=== PATIENT | female | born 1945 | race Caucasian/White ===

== ENCOUNTER → 2016-10-26 | Outpatient (REF) | payer MEDICARE, BC ==
[~2016-10-26] MED LIST: AMLO25TA PO; ASPI325T PO; ATEN50TA2 PO; BAYE325T12 PO; BENA25CA2 PO; CALC600T10 PO; CEFD250SUS PO; FLAG250T PO; HEPA100PFS IV; INVA1INJ IV; KRIL300C PO; MAGN500T2 PO; META28.35 PO; MILKSUS PO; OXYC5CAP28 PO; PROBCAP4 PO; PROT1TAB2 PO; RAMI10CA PO; RAMI5CAP PO; SALI0.9I2 IV; TUMS500C PO; TYLE325T5 PO; VIST50CA PO; VITA100041 PO; VITA500T53 PO; VOLT1GEL24 TD; ZOFR20TA PO; ZOLP-189 PO; [UNRECOGNIZED DRUG - CODE] TOP; multivitamin OR
[2016-10-26 16:22] LABS: BLOOD UREA NITROGEN 19 MG/DL (7-18); CREATININE FOR GFR 0.76 MG/DL (0.55-1.02); GLOMERULAR FILTRATION RATE > 60.0 (>39)
== END ==
LOC: M LABDRAW1 15:39
PROVIDERS: ATTEND Surgery
DX: R10.84 Generalized abdominal pain (principal)

== ENCOUNTER → 2017-07-13 | Outpatient (REF) | payer MEDICARE, BC ==
[~2017-07-13] MED LIST changes: -CALC600T10 PO; +CALC600T31 PO; +VITA-182 PO; -VITA100041 PO; +VOLT1GEL15 TD; -VOLT1GEL24 TD
[2017-07-13 14:21] LABS: VITAMIN B12 LEVEL 805 PG/ML (247-911)
[2017-07-13 14:29] LABS: BASO # 0.1 10^3/uL (0.0-0.2); BASO % 0.7 % (0.0-1.0); EOS # 0.2 10^3/uL (0.0-0.50); EOS % 1.9 % (0.0-3.0); IMMATURE GRANULOCYTE % 0.4 % (0-0); LYMPH # 2.5 10^3/uL (1.5-4.5); LYMPH % 22.5 % (24.0-44.0); MEAN CORPUSCULAR HEMOGLOBIN 32.4 pg (27.0-33.0); MEAN CORPUSCULAR HGB CONC 32.5 g/dl (32.0-36.5); MEAN CORPUSCULAR VOLUME 99.8 fl (80.0-96.0); MONO # 0.9 10^3/uL (0.0-0.8); NEUTROPHILS # 7.5 10^3/uL (1.8-7.7); NEUTROPHILS % 66.5 % (36.0-66.0); PLATELET COUNT, AUTOMATED 294 10^3/uL (150-450); RED CELL DISTRIBUTION WIDTH 12.3 % (11.5-14.5); WHITE BLOOD COUNT 11.2 10^3/uL (4.0-10.0)
[2017-07-13 14:50] LABS: ALBUMIN 3.5 GM/DL (3.2-5.2); ALBUMIN/GLOBULIN RATIO 1.13 (1.00-1.93); ALKALINE PHOSPHATASE 74 U/L (45-117); ALT/SGPT 16 U/L (12-78); ANION GAP 6 MEQ/L (8-16); AST/SGOT 9 U/L (7-37); BILIRUBIN,TOTAL 0.3 MG/DL (0.2-1.0); BLOOD UREA NITROGEN 17 MG/DL (7-18); CALCIUM LEVEL 9.1 MG/DL (8.8-10.2); CARBON DIOXIDE LEVEL 30 MEQ/L (21-32); CHLORIDE LEVEL 104 MEQ/L (98-107); CREATININE FOR GFR 0.69 MG/DL (0.55-1.02); FERRITIN 41 NG/ML (8-252); GLOMERULAR FILTRATION RATE > 60.0 (>39); GLUCOSE, FASTING 77 MG/DL (83-110); PERCENT SATURATION 35.3 % (13.2-45.0); POTASSIUM SERUM 4.6 MEQ/L (3.5-5.1); SODIUM LEVEL 140 MEQ/L (136-145); TOTAL IRON BINDING CAPACITY 300 UG/DL (250-450); TOTAL PROTEIN 6.6 GM/DL (6.4-8.2)
== END ==
LOC: M SFHCPLAZ 09:54 → M LABDRAW1 09:54
PROVIDERS: ATTEND Family Medicine
DX: E53.8 Deficiency of other specified B group vitamins (principal); E55.9 Vitamin D deficiency, unspecified; R73.01 Impaired fasting glucose; Z86.718 Personal history of other venous thrombosis and embolism; M47.814 Spondylosis without myelopathy or radiculopathy, thoracic region; J44.9 Chronic obstructive pulmonary disease, unspecified; I10 Essential (primary) hypertension; M79.7 Fibromyalgia; G47.00 Insomnia, unspecified; E78.5 Hyperlipidemia, unspecified; F17.200 Nicotine dependence, unspecified, uncomplicated; D72.829 Elevated white blood cell count, unspecified; K21.9 Gastro-esophageal reflux disease without esophagitis; D12.6 Benign neoplasm of colon, unspecified; Z12.2 Encounter for screening for malignant neoplasm of respiratory organs
CPT/HCPCS: 80053; 82306; 82607; 82728; 83036; 83550; 83970; 85025; G0463

== ENCOUNTER → 2017-10-24 | Outpatient (CLI) | payer MEDICARE, BC ==
[2017-10-24 09:25] LABS: HEMOGLOBIN 12.9 g/dl (12.0-16.0); MEAN CORPUSCULAR HEMOGLOBIN 32.7 pg (27.0-33.0); MEAN CORPUSCULAR HGB CONC 33.1 g/dl (32.0-36.5); MEAN CORPUSCULAR VOLUME 98.7 fl (80.0-96.0); PLATELET COUNT, AUTOMATED 278 10^3/uL (150-450); RED BLOOD COUNT 3.95 10^6/uL (4.00-5.40); RED CELL DISTRIBUTION WIDTH 12.8 % (11.5-14.5); WHITE BLOOD COUNT 9.8 10^3/uL (4.0-10.0)
[2017-10-24 10:05] LABS: ALBUMIN 3.4 GM/DL (3.2-5.2); ALBUMIN/GLOBULIN RATIO 1.06 (1.00-1.93); ALKALINE PHOSPHATASE 82 U/L (45-117); ALT/SGPT 16 U/L (12-78); ANION GAP 4 MEQ/L (8-16); AST/SGOT 11 U/L (7-37); BILIRUBIN,TOTAL 0.2 MG/DL (0.2-1.0); BLOOD UREA NITROGEN 24 MG/DL (7-18); CALCIUM LEVEL 8.7 MG/DL (8.8-10.2); CARBON DIOXIDE LEVEL 32 MEQ/L (21-32); CHLORIDE LEVEL 108 MEQ/L (98-107); CHOLESTEROL LEVEL 196 MG/DL (<200); CREATININE FOR GFR 0.72 MG/DL (0.55-1.30); GLOMERULAR FILTRATION RATE > 60.0 (>39); GLUCOSE, FASTING 99 MG/DL (70-100); HDL CHOLESTEROL 56 MG/DL (>40); NON-HDL-C 140 MG/DL; POTASSIUM SERUM 4.4 MEQ/L (3.5-5.1); SODIUM LEVEL 144 MEQ/L (136-145); TOTAL PROTEIN 6.6 GM/DL (6.4-8.2); TRIGLYCERIDES LEVEL 65 MG/DL (<150)
[2017-10-24 11:27] LABS: TOTAL 25(OH) VITAMIN D 52.5 NG/ML (30.0-100.0)
== END ==
LOC: M LAB 08:44
DX: R53.83 Other fatigue (principal); I10 Essential (primary) hypertension; J44.9 Chronic obstructive pulmonary disease, unspecified
CPT/HCPCS: 71046

== ENCOUNTER → 2018-03-04 | Outpatient (CLI) | payer MEDICARE, BC ==
[2018-03-04 17:22] LABS: HEMATOCRIT 39.4 % (36.0-47.0); HEMOGLOBIN 13.1 g/dl (12.0-15.5); MEAN CORPUSCULAR HGB CONC 33.2 g/dl (32.0-36.5); MEAN CORPUSCULAR VOLUME 99.2 fl (80.0-96.0); PLATELET COUNT, AUTOMATED 314 10^3/uL (150-450); RED BLOOD COUNT 3.97 10^6/uL (4.00-5.40); RED CELL DISTRIBUTION WIDTH 13.3 % (11.5-14.5); WHITE BLOOD COUNT 14.2 10^3/uL (4.0-10.0)
[2018-03-04 17:39] LABS: ESTIMATED AVERAGE GLUCOSE 117 MG/DL (60-110); HEMOGLOBIN A1c 5.7 %
[2018-03-04 18:36] LABS: TOTAL 25(OH) VITAMIN D 47.4 NG/ML (30.0-100.0)
[2018-03-04 18:48] LABS: ALBUMIN 3.5 GM/DL (3.2-5.2); ALBUMIN/GLOBULIN RATIO 0.97 (1.00-1.93); ALKALINE PHOSPHATASE 85 U/L (45-117); ALT/SGPT 18 U/L (12-78); ANION GAP 8 MEQ/L (8-16); AST/SGOT 13 U/L (7-37); BILIRUBIN,TOTAL 0.3 MG/DL (0.2-1.0); BLOOD UREA NITROGEN 30 MG/DL (7-18); CALCIUM LEVEL 9.1 MG/DL (8.8-10.2); CARBON DIOXIDE LEVEL 29 MEQ/L (21-32); CHLORIDE LEVEL 106 MEQ/L (98-107); CREATININE FOR GFR 1.01 MG/DL (0.55-1.30); GLOMERULAR FILTRATION RATE 56.9 (>39); GLUCOSE, FASTING 93 MG/DL (70-100); IRON (FE) 142 UG/DL (50-170); PERCENT SATURATION 35.9 % (13.2-45.0); POTASSIUM SERUM 4.1 MEQ/L (3.5-5.1); SODIUM LEVEL 143 MEQ/L (136-145); THYROID STIMULATING HORMONE 0.931 uIU/ML (0.358-3.740); TOTAL IRON BINDING CAPACITY 396 UG/DL (250-450); TOTAL PROTEIN 7.1 GM/DL (6.4-8.2)
== END ==
LOC: M LAB 16:22
DX: D64.9 Anemia, unspecified (principal); R53.83 Other fatigue; E03.9 Hypothyroidism, unspecified; Z79.899 Other long term (current) drug therapy
CPT/HCPCS: 83550

== ENCOUNTER → 2018-07-11 | Outpatient (REF) | payer MEDICARE, BC ==
[2018-07-11 17:06] LABS: HEMATOCRIT 39.1 % (36.0-47.0); HEMOGLOBIN 12.7 g/dl (12.0-15.5); MEAN CORPUSCULAR HEMOGLOBIN 33.1 pg (27.0-33.0); MEAN CORPUSCULAR HGB CONC 32.5 g/dl (32.0-36.5); MEAN CORPUSCULAR VOLUME 101.8 fl (80.0-96.0); PLATELET COUNT, AUTOMATED 291 10^3/uL (150-450); RED BLOOD COUNT 3.84 10^6/uL (4.00-5.40); RED CELL DISTRIBUTION WIDTH 13.4 % (11.5-14.5); WHITE BLOOD COUNT 11.5 10^3/uL (4.0-10.0)
[2018-07-11 17:28] LABS: ALBUMIN 3.5 GM/DL (3.2-5.2); ALBUMIN/GLOBULIN RATIO 1.06 (1.00-1.93); ALKALINE PHOSPHATASE 81 U/L (45-117); ALT/SGPT 15 U/L (12-78); AMYLASE 36 U/L (25-115); ANION GAP 5 MEQ/L (8-16); AST/SGOT 9 U/L (7-37); BILIRUBIN,TOTAL 0.3 MG/DL (0.2-1.0); BLOOD UREA NITROGEN 21 MG/DL (7-18); CALCIUM LEVEL 9.3 MG/DL (8.8-10.2); CARBON DIOXIDE LEVEL 32 MEQ/L (21-32); CHLORIDE LEVEL 103 MEQ/L (98-107); CREATININE FOR GFR 0.98 MG/DL (0.55-1.30); GLOMERULAR FILTRATION RATE 58.9 (>39); GLUCOSE, FASTING 166 MG/DL (70-100); POTASSIUM SERUM 4.2 MEQ/L (3.5-5.1); SODIUM LEVEL 140 MEQ/L (136-145); THYROID STIMULATING HORMONE 0.814 uIU/ML (0.358-3.740); TOTAL PROTEIN 6.8 GM/DL (6.4-8.2)
== END ==
LOC: M LABDRAW1 16:41
DX: R10.9 Unspecified abdominal pain (principal); D64.9 Anemia, unspecified
CPT/HCPCS: 82150

== ENCOUNTER → 2018-07-12 | Outpatient (REF) | payer MEDICARE, BC ==
[2018-07-12 12:52] LABS: APPEARANCE, URINE CLEAR (CLEAR); BACTERIA, URINE AUTO 1+ (NEGATIVE); BILIRUBIN, URINE AUTO NEGATIVE (NEGATIVE); BLOOD, URINE BLOOD NEGATIVE (NEGATIVE); COLOR, URINE YELLOW (YELLOW); GLUCOSE, URINE (UA) AUTO NEGATIVE (NEGATIVE); KETONE, URINE AUTO NEGATIVE (NEGATIVE); LEUKOCYTE ESTERASE, URINE AUTO NEGATIVE (NEGATIVE); MUCUS, URINE SMALL (NEGATIVE); NITRITE, URINE AUTO NEGATIVE (NEGATIVE); PROTEIN, URINE AUTO NEGATIVE (NEGATIVE); RBC, URINE AUTO 0 /HPF (0-3); SQUAMOUS EPITHELIAL CELL UR AU 1 /HPF (0-6); UROBILINOGEN, URINE AUTO 0.2 mg/dL (0.0-2.0); WBC, URINE AUTO 1 /HPF (0-3)
== END ==
LOC: M LAB REF 12:15
DX: R10.9 Unspecified abdominal pain (principal); D64.9 Anemia, unspecified; K57.32 Diverticulitis of large intestine without perforation or abscess without bleeding
CPT/HCPCS: 81001

== ENCOUNTER → 2018-12-10 | Outpatient (REF) | payer MEDICARE, BC ==
[~2018-12-10] MED LIST changes: +CEFD250S16 PO; -CEFD250SUS PO; +MILK120011 PO; -MILKSUS PO; -RAMI10CA PO; +RAMI1CAP26 PO; +VITA500T17 PO; -VITA500T53 PO; -ZOFR20TA PO; +ZOFR4TAB16 PO
[2018-12-10 14:15] LABS: APPEARANCE, URINE CLEAR (CLEAR); BACTERIA, URINE AUTO 1+ (NEGATIVE); BILIRUBIN, URINE AUTO NEGATIVE (NEGATIVE); BLOOD, URINE BLOOD NEGATIVE (NEGATIVE); COLOR, URINE STRAW (YELLOW); GLUCOSE, URINE (UA) AUTO NEGATIVE (NEGATIVE); KETONE, URINE AUTO NEGATIVE (NEGATIVE); LEUKOCYTE ESTERASE, URINE AUTO TRACE (NEGATIVE); MUCUS, URINE SMALL (NEGATIVE); NITRITE, URINE AUTO NEGATIVE (NEGATIVE); PROTEIN, URINE AUTO NEGATIVE (NEGATIVE); RBC, URINE AUTO 1 /HPF (0-3); SPECIFIC GRAVITY URINE AUTO 1.005 (1.002-1.035); SQUAMOUS EPITHELIAL CELL UR AU 0 /HPF (0-6); UROBILINOGEN, URINE AUTO 0.2 mg/dL (0.0-2.0); WBC, URINE AUTO 1 /HPF (0-3)
== END ==
LOC: M SFHCPLAZ 12:51
PROVIDERS: ATTEND Nurse Practitioner Family
DX: N39.0 Urinary tract infection, site not specified (principal)
CPT/HCPCS: 51798; 81001; 81002; 82270; 87086; G0463

== ENCOUNTER → 2018-12-30 | Outpatient (REF) | payer MEDICARE, BC | LOC: M SFHCPLAZ 10:03 | PROVIDERS: ATTEND Nurse Practitioner Family | DX: N39.0 Urinary tract infection, site not specified (principal) ==

== ENCOUNTER → 2018-12-31 | Outpatient (REF) | payer MEDICARE, BC ==
[2018-12-31 18:38] LABS: BASO # 0.1 10^3/uL (0.0-0.2); BASO % 0.5 % (0.0-1.0); EOS # 0.2 10^3/uL (0.0-0.50); EOS % 1.8 % (0.0-3.0); HEMATOCRIT 38.5 % (36.0-47.0); HEMOGLOBIN 12.7 g/dl (12.0-15.5); LYMPH # 2.5 10^3/uL (1.5-4.5); LYMPH % 21.6 % (24.0-44.0); MEAN CORPUSCULAR HEMOGLOBIN 33.7 pg (27.0-33.0); MEAN CORPUSCULAR VOLUME 102.1 fl (80.0-96.0); MONO % 8.7 % (0.0-5.0); NEUTROPHILS # 7.7 10^3/uL (1.8-7.7); NEUTROPHILS % 67.2 % (36.0-66.0); PLATELET COUNT, AUTOMATED 277 10^3/uL (150-450); RED BLOOD COUNT 3.77 10^6/uL (4.00-5.40); WHITE BLOOD COUNT 11.5 10^3/uL (4.0-10.0)
[2018-12-31 18:56] LABS: ALBUMIN 3.4 GM/DL (3.2-5.2); BILIRUBIN,TOTAL 0.1 MG/DL (0.2-1.0); CALCIUM LEVEL 8.8 MG/DL (8.8-10.2); CREATININE FOR GFR 1.08 MG/DL (0.55-1.30); GLOMERULAR FILTRATION RATE 52.7 (>39); POTASSIUM SERUM 4.4 MEQ/L (3.5-5.1); TOTAL PROTEIN 6.9 GM/DL (6.4-8.2)
== END ==
LOC: M LABDRAW1 17:15
PROVIDERS: ATTEND Nurse Practitioner Family
DX: N39.0 Urinary tract infection, site not specified (principal)

== ENCOUNTER → 2019-02-07 | Outpatient (REF) | payer MEDICARE, BC ==
[~2019-02-07] MED LIST changes: +BACL1TAB8 PO; +COQ-100C5 PO; +DICY10CA13 PO; +FURO40TA2 PO; +MYRB25TA PO; +POTA8CAP4 PO; +RANI1SYP PO; +[UNRECOGNIZED DRUG - OTHER]
[2019-02-07 14:01] LABS: BASO # 0.1 10^3/uL (0.0-0.2); BASO % 0.8 % (0.0-1.0); EOS # 0.2 10^3/uL (0.0-0.50); EOS % 1.7 % (0.0-3.0); HEMATOCRIT 41.7 % (36.0-47.0); HEMOGLOBIN 13.6 g/dl (12.0-15.5); LYMPH # 2.3 10^3/uL (1.5-4.5); LYMPH % 22.3 % (24.0-44.0); MEAN CORPUSCULAR HEMOGLOBIN 33.9 pg (27.0-33.0); MEAN CORPUSCULAR HGB CONC 32.6 g/dl (32.0-36.5); MONO # 0.9 10^3/uL (0.0-0.8); MONO % 8.5 % (0.0-5.0); NEUTROPHILS # 6.8 10^3/uL (1.8-7.7); NEUTROPHILS % 66.4 % (36.0-66.0); PLATELET COUNT, AUTOMATED 306 10^3/uL (150-450); RED BLOOD COUNT 4.01 10^6/uL (4.00-5.40); WHITE BLOOD COUNT 10.3 10^3/uL (4.0-10.0)
[2019-02-07 14:09] LABS: ALBUMIN 3.3 GM/DL (3.2-5.2); BILIRUBIN,TOTAL 0.2 MG/DL (0.2-1.0); CALCIUM LEVEL 9.6 MG/DL (8.8-10.2); CHOLESTEROL RISK RATIO 4.551 (<5); CREATININE FOR GFR 1.1 MG/DL (0.55-1.30); FREE T4 1.14 NG/DL (0.76-1.46); GLOMERULAR FILTRATION RATE 51.4 (>39); MAGNESIUM LEVEL 2.5 MG/DL (1.8-2.4); POTASSIUM SERUM 4.2 MEQ/L (3.5-5.1); THYROID STIMULATING HORMONE 0.909 uIU/ML (0.358-3.740)
[2019-02-07 14:38] LABS: HEMOGLOBIN A1c 6.2 %
== END ==
LOC: M SFHCPLAZ 11:19
PROVIDERS: ATTEND Nurse Practitioner Family
DX: I10 Essential (primary) hypertension (principal); R73.01 Impaired fasting glucose; E78.5 Hyperlipidemia, unspecified
CPT/HCPCS: 36415; 80053; 80061; 83036; 83735; 84439; 84443; 85025; G0463

== ENCOUNTER 2019-03-03 21:18 | Emergency (ER) | payer MEDICARE, BC ==
[~2019-03-03] VITALS: Ht 167.6 cm; Wt 87.7 kg
[2019-03-03 21:18] VITALS: BP 148/84
[~2019-03-03 21:18] MED LIST changes: -BACL1TAB8 PO; -COQ-100C5 PO; -DICY10CA13 PO; -FURO40TA2 PO; -MYRB25TA PO; -POTA8CAP4 PO; -RANI1SYP PO; -[UNRECOGNIZED DRUG - OTHER]
[2019-03-03] MEDS ORDERED: FURO40TA2 PO (21:38)
[2019-03-03] MEDS ORDERED: POTA8CAP4 PO (21:38)
[2019-03-03] MEDS ORDERED: BACL1TAB8 PO (21:38)
[2019-03-03] MEDS ORDERED: [UNRECOGNIZED DRUG - OTHER] (21:38)
[2019-03-03] MEDS ORDERED: MYRB25TA PO (21:38)
[2019-03-03] MEDS ORDERED: COQ-100C5 PO (21:38)
[2019-03-03] MEDS ORDERED: RANI1SYP PO (21:38)
[2019-03-03] MEDS ORDERED: DICY10CA13 PO (21:38)
== END 2019-03-03 22:41 | disposition left against medical advice (07) ==
LOC: M ED 21:18
DX: Z53.29 Procedure and treatment not carried out because of patient's decision for other reasons (principal)

== ENCOUNTER → 2019-03-20 | Outpatient (CLI) | payer MEDICARE, BC ==
[~2019-03-20] MED LIST changes: +BACL1TAB8 PO; +COQ-100C5 PO; +DICY10CA13 PO; +FURO40TA2 PO; +GASTROGRAFIN SOLUTION 30ML (Q9963) As Ordered ONE; +MYRB25TA PO; +POTA8CAP10 PO; +RANI1SYP PO; +[UNRECOGNIZED DRUG - OTHER]
--- NOTE | 2019-03-20 13:33 | REP ---
CT of the abdomen pelvis without IV or bowel contrast: Comparison is 07/16/2018. The visualized lung walters are unremarkable. There is an hepatic cyst within the interlobar fissure measuring 1.5 cm in diameter, unchanged. The unenhanced hepatic parenchyma is otherwise unremarkable. There are calculi in the gallbladder fundus, unchanged. There is no CT evidence of acute cholecystitis or biliary duct dilatation. This is unchanged. The pancreas and spleen are normal size and unchanged. The adrenals are thickened bilaterally, unchanged, likely adrenal hyperplasia. There are left renal cysts, unchanged. Right kidney is unremarkable and unchanged. There is no abdominal aortic aneurysm. There is no periaortic adenopathy or mass. There is no bowel distension. There is wall thickening of the ascending colon compatible with colitis in the appropriate clinical setting. This has a change from the prior study. There are diverticula in the descending colon and sigmoid colon without CT evidence of diverticulitis. This is unchanged. Pelvis: The appendix is unremarkable. There is a trace of ascites in the dependent pelvis. This is a change from the prior study. There are calcifications in years compatible with degenerating fibroids, unchanged. The adnexa are unremarkable. The bladder is unremarkable. Impression: There are findings compatible with colitis of the ascending colon in the appropriate clinical setting. There is a trace of ascites in the pelvis. There is descending colon and sigmoid colon diverticulosis without diverticulitis, unchanged. There are multiple other stable findings as described, unchanged. Electronically Signed by Greg Hunter MD 03/20/2019 01:25 P
== END ==
LOC: M RAD 08:05
PROVIDERS: ATTEND Physician Assistant
DX: R10.9 Unspecified abdominal pain (principal); K92.1 Melena
CPT/HCPCS: 74176; Q9963

== ENCOUNTER → 2019-03-28 | Outpatient (REF) | payer MEDICARE, BC ==
[~2019-03-28] MED LIST changes: -GASTROGRAFIN SOLUTION 30ML (Q9963) As Ordered ONE
== END ==
LOC: M LAB REF 15:26
PROVIDERS: ATTEND Physician Assistant
DX: R19.7 Diarrhea, unspecified (principal)

== ENCOUNTER → 2019-04-21 | Outpatient (REF) | payer MEDICARE, BC ==
[2019-04-21 19:36] LABS: APPEARANCE, URINE CLOUDY (CLEAR); BACTERIA, URINE AUTO 1+ (NEGATIVE); BILIRUBIN, URINE AUTO NEGATIVE (NEGATIVE); BLOOD, URINE BLOOD NEGATIVE (NEGATIVE); COLOR, URINE YELLOW (YELLOW); GLUCOSE, URINE (UA) AUTO NEGATIVE (NEGATIVE); KETONE, URINE AUTO NEGATIVE (NEGATIVE); LEUKOCYTE ESTERASE, URINE AUTO NEGATIVE (NEGATIVE); MUCUS, URINE SMALL (NEGATIVE); NITRITE, URINE AUTO NEGATIVE (NEGATIVE); PROTEIN, URINE AUTO NEGATIVE (NEGATIVE); RBC, URINE AUTO 2 /HPF (0-3); SPECIFIC GRAVITY URINE AUTO 1.013 (1.002-1.035); SQUAMOUS EPITHELIAL CELL UR AU 9 /HPF (0-6); UROBILINOGEN, URINE AUTO 0.2 mg/dL (0.0-2.0); WBC, URINE AUTO 1 /HPF (0-3)
== END ==
LOC: M SFHCPLAZ 19:16
PROVIDERS: ATTEND Nurse Practitioner Family
DX: R31.9 Hematuria, unspecified (principal)

== ENCOUNTER → 2019-04-24 | Outpatient (REF) | payer MEDICARE, BC ==
[2019-04-29 09:48] LABS: CALPROTECTIN STOOL 250 ug/g (0-120); FATS NEUTRAL Normal (.); FATS TOTAL Normal (.)
== END ==
LOC: M LAB REF 15:49
PROVIDERS: ATTEND Internal Medicine Gastroenterology
DX: R10.12 Left upper quadrant pain (principal); R19.7 Diarrhea, unspecified

== ENCOUNTER → 2019-04-25 | Outpatient (REF) | payer MEDICARE, BC ==
[2019-04-25 16:46] LABS: HEMATOCRIT 39.9 % (36.0-47.0); HEMOGLOBIN 13.1 g/dl (12.0-15.5); MEAN CORPUSCULAR HEMOGLOBIN 32.9 pg (27.0-33.0); MEAN CORPUSCULAR HGB CONC 32.8 g/dl (32.0-36.5); MEAN CORPUSCULAR VOLUME 100.3 fl (80.0-96.0); PLATELET COUNT, AUTOMATED 327 10^3/uL (150-450); RED BLOOD COUNT 3.98 10^6/uL (4.00-5.40); WHITE BLOOD COUNT 9.6 10^3/uL (4.0-10.0)
[2019-04-25 16:52] LABS: ALBUMIN 3.4 GM/DL (3.2-5.2); BILIRUBIN,TOTAL 0.4 MG/DL (0.2-1.0); CALCIUM LEVEL 9.5 MG/DL (8.8-10.2); CREATININE FOR GFR 1.3 MG/DL (0.55-1.30); GLOMERULAR FILTRATION RATE 42.4 (>39); POTASSIUM SERUM 3.5 MEQ/L (3.5-5.1); TOTAL PROTEIN 7.1 GM/DL (6.4-8.2)
== END ==
LOC: M LABDRAWP 12:52
PROVIDERS: ATTEND Physician Assistant
DX: D50.9 Iron deficiency anemia, unspecified (principal); R10.12 Left upper quadrant pain

== ENCOUNTER → 2019-05-22 | Outpatient (REF) | payer MEDICARE, BC ==
[2019-05-22 12:04] LABS: BASO # 0.1 10^3/uL (0.0-0.2); BASO % 0.5 % (0.0-1.0); EOS # 0.2 10^3/uL (0.0-0.5); EOS % 1.5 % (0.0-3.0); HEMATOCRIT 39.1 % (36.0-47.0); HEMOGLOBIN 12.7 g/dl (12.0-15.5); LYMPH % 25.2 % (24.0-44.0); MEAN CORPUSCULAR HEMOGLOBIN 33.2 pg (27.0-33.0); MEAN CORPUSCULAR HGB CONC 32.5 g/dl (32.0-36.5); MEAN CORPUSCULAR VOLUME 102.4 fl (80.0-96.0); MONO # 0.9 10^3/uL (0.0-0.8); MONO % 7.6 % (0.0-5.0); NEUTROPHILS # 7.6 10^3/uL (1.5-8.5); NEUTROPHILS % 64.6 % (36.0-66.0); PLATELET COUNT, AUTOMATED 290 10^3/uL (150-450); RED BLOOD COUNT 3.82 10^6/uL (4.00-5.40); WHITE BLOOD COUNT 11.7 10^3/uL (4.0-10.0)
[2019-05-22 12:40] LABS: ALBUMIN 3.3 GM/DL (3.2-5.2); BILIRUBIN,TOTAL 0.2 MG/DL (0.2-1.0); CALCIUM LEVEL 8.8 MG/DL (8.8-10.2); CHOLESTEROL RISK RATIO 3.174 (<5); CREATININE FOR GFR 0.99 MG/DL (0.55-1.30); FREE T4 1.17 NG/DL (0.76-1.46); GLOMERULAR FILTRATION RATE 58.1 (>39); POTASSIUM SERUM 3.9 MEQ/L (3.5-5.1); THYROID STIMULATING HORMONE 1.39 uIU/ML (0.358-3.740); TOTAL PROTEIN 6.3 GM/DL (6.4-8.2)
[2019-05-22 12:41] LABS: TOTAL 25(OH) VITAMIN D 56.9 NG/ML (30.0-100.0)
[2019-05-22 15:31] LABS: HEMOGLOBIN A1c 5.7 %
== END ==
LOC: M SFHCPLAZ 09:30
PROVIDERS: ATTEND Nurse Practitioner Family
DX: R53.83 Other fatigue (principal); I10 Essential (primary) hypertension; R73.01 Impaired fasting glucose; E78.5 Hyperlipidemia, unspecified; E55.9 Vitamin D deficiency, unspecified; E53.8 Deficiency of other specified B group vitamins

== ENCOUNTER → 2019-09-19 | Outpatient (REF) | payer MEDICARE, BC ==
[2019-09-19 17:34] LABS: BASO # 0.1 10^3/uL (0.0-0.2); BASO % 0.4 % (0.0-1.0); EOS # 0.2 10^3/uL (0.0-0.5); EOS % 1.3 % (0.0-3.0); HEMOGLOBIN 13.3 g/dl (12.0-15.5); LYMPH # 2.8 10^3/uL (1.5-5.0); LYMPH % 24.4 % (24.0-44.0); MEAN CORPUSCULAR HEMOGLOBIN 32.7 pg (27.0-33.0); MEAN CORPUSCULAR HGB CONC 31.7 g/dl (32.0-36.5); MEAN CORPUSCULAR VOLUME 103.2 fl (80.0-96.0); MONO # 0.8 10^3/uL (0.0-0.8); MONO % 6.6 % (0.0-5.0); NEUTROPHILS # 7.8 10^3/uL (1.5-8.5); PLATELET COUNT, AUTOMATED 282 10^3/uL (150-450); RED BLOOD COUNT 4.07 10^6/uL (4.00-5.40); WHITE BLOOD COUNT 11.6 10^3/uL (4.0-10.0)
[2019-09-19 17:50] LABS: HEMOGLOBIN A1c 6.4 %
[2019-09-19 18:10] LABS: ALBUMIN 3.5 GM/DL (3.2-5.2); BILIRUBIN,TOTAL 0.4 MG/DL (0.2-1.0); CALCIUM LEVEL 9.4 MG/DL (8.8-10.2); CREATININE FOR GFR 1.05 MG/DL (0.55-1.30); FREE T4 1.07 NG/DL (0.76-1.46); GLOMERULAR FILTRATION RATE 54.2 (>39); POTASSIUM SERUM 4.6 MEQ/L (3.5-5.1); THYROID STIMULATING HORMONE 0.974 uIU/ML (0.358-3.740); TOTAL PROTEIN 6.8 GM/DL (6.4-8.2)
== END ==
LOC: M LABDRAW1 15:40
PROVIDERS: ATTEND Family Medicine
DX: L65.9 Nonscarring hair loss, unspecified (principal); R73.01 Impaired fasting glucose
CPT/HCPCS: 36415; 80053; 82607; 83036; 83880; 84439; 84443; 84591; 85025; 85046; G0463

== ENCOUNTER → 2019-09-29 | Outpatient (CLI) | payer MEDICARE, BC ==
--- NOTE | 2019-09-29 09:33 | REP ---
Bilateral lower extremity arterial Doppler ultrasound: Right lower extremity: The the CURTIS could not be performed, the patient could not tolerate blood pressure cuff compression. Peak Systolic Phasicity Velocity FINAL FINISHER FORGING DIES the 178 biphasic Profunda 143 monophasic SFA prox 145 biphasic SFA mid 131 biphasic SFA dist 90 biphasic Pop 58 biphasic TEO prox 49 bi-monophasic Tib/P tr 80 biphasic PACKING MACHINE FEEDER pr 54 biphasic PACKING MACHINE FEEDER dst 89 biphasic TEO dst 74 biphasic Left lower extremity: The CURTIS could not be performed, the patient could not tolerate blood pressure cuff compression. Peak Systolic Phasicity Velocity FINAL FINISHER FORGING DIES 151 biphasic Profunda 132 monophasic SFA prox 142 biphasic SFA mid 138 biphasic SFA dist 106 biphasic Pop 65 biphasic TEO prox 50 monophasic Tib/P tr 87 biphasic PACKING MACHINE FEEDER pr 82 biphasic PACKING MACHINE FEEDER dst 67 biphasic TEO dst 57 biphasic Impression: There is no significant stenosis on the right on the left. There is mild atheromatous plaque bilaterally from the CFAs into the bifurcations. Electronically Signed by Greg Hunter MD 09/29/2019 09:24 A
== END ==
LOC: M RAD 07:41
PROVIDERS: ATTEND Family Medicine
DX: I73.9 Peripheral vascular disease, unspecified (principal)

== ENCOUNTER → 2019-10-06 | Outpatient (CLI) | payer MEDICARE, BC ==
--- NOTE | 2019-10-07 10:47 | REPVR ---
PROCEDURE INFORMATION: Exam: MR Thoracic Spine Without Contrast Exam date and time: 10/06/2019 1:52 PM Age: 74 years old Clinical indication: Pain in thoracic spine; With radiculopathy; Bilateral; Additional info: Osteoarthritis of spine w/radiculopathy, thoracic region TECHNIQUE: Imaging protocol: Multiplanar magnetic resonance images of the thoracic spine without contrast. COMPARISON: No relevant prior studies available. FINDINGS: Vertebrae: The thoracic vertebral bodies are normal height and alignment.No acute fracture or dislocation is seen. Marrow: There is mild diffuse prominence of the hematopoietic bone marrow, disproportionate for this patient's age. This can represent the effects of chronic anemia, chronic renal and liver disease, smoking, pharmacologic marrow stimulating factors, and infiltrating processes such as multiple myeloma, metastasis, lymphoma or leukemia. Clinical correlation is recommended. Epidural space: There is no evidence of epidural masses or hemorrhage. Spinal cord: The thoracic spinal cord is normal in thickness and signal intensity.There is no cord compression or intramedullary signal abnormality. Discs/Spinal canal/Neural foramina: Mild degenerative spondylotic changes are seen in the form of mild disc space narrowing, small marginal osteophytes and mild facet arthropathy at T5-6 through T9-10 levels. There is a mild diffuse posterior bulge at these levels. There is no evidence of spinal canal narrowing.There is no evidence of foraminal stenosis. Soft tissues: The prevertebral soft tissues appear normal. IMPRESSION: 1. The thoracic vertebral bodies are normal height and alignment.No acute fracture or dislocation is seen. 2. There is mild diffuse prominence of the hematopoietic bone marrow, disproportionate for this patient's age. This can represent the effects of chronic anemia, chronic renal and liver disease, smoking, pharmacologic marrow stimulating factors, and infiltrating processes such as multiple myeloma, metastasis, lymphoma or leukemia. Clinical correlation is recommended. 3. The thoracic spinal cord is normal in thickness and signal intensity.There is no cord compression or intramedullary signal abnormality. 4. Mild degenerative spondylotic changes are seen in the form of mild disc space narrowing, small marginal osteophytes and mild facet arthropathy at T5-6 through T9-10 levels. There is a mild diffuse posterior bulge at these levels. There is no evidence of spinal canal narrowing.There is no evidence of foraminal stenosis. Electronically signed by: Louie Moore On 10/07/2019 10:46:42 AM
== END ==
LOC: M RAD 11:57
PROVIDERS: ATTEND Family Medicine
DX: M47.24 Other spondylosis with radiculopathy, thoracic region (principal)

== ENCOUNTER → 2020-02-17 | Outpatient (CLI) | payer MEDICARE, BC ==
--- NOTE | 2020-02-17 12:23 | REPPI ---
LEFT KNEE SERIES: Five views. HISTORY: Primary osteoarthritis of both knees. FINDINGS: Five views of the left knee demonstrate left knee arthroplasty components in good position. No erosive changes seen. Soft tissues are unremarkable. IMPRESSION: Status post left knee arthroplasty. No acute abnormality. Electronically Signed by Hernán Chin MD 02/17/2020 12:32 P
== END ==
LOC: M PLAIMG 11:17
PROVIDERS: ATTEND Family Medicine
DX: M17.0 Bilateral primary osteoarthritis of knee (principal)
CPT/HCPCS: 73564; G0463

== ENCOUNTER 2020-07-24 10:06 | Emergency (ER) | payer MEDICARE, BC ==
[~2020-07-24] VITALS: Ht 167.6 cm; Wt 80.5 kg
[2020-07-24 10:51] LABS: BASO # 0.1 10^3/uL (0.0-0.2); BASO % 0.4 % (0.0-1.0); EOS # 0.1 10^3/uL (0.0-0.5); EOS % 0.4 % (0.0-3.0); HEMATOCRIT 41.7 % (36.0-47.0); HEMOGLOBIN 13.4 g/dl (12.0-15.5); LYMPH # 1.7 10^3/uL (1.5-5.0); LYMPH % 12.2 % (24.0-44.0); MEAN CORPUSCULAR HEMOGLOBIN 33.2 pg (27.0-33.0); MEAN CORPUSCULAR HGB CONC 32.1 g/dl (32.0-36.5); MEAN CORPUSCULAR VOLUME 103.2 fl (80.0-96.0); MONO # 0.6 10^3/uL (0.0-0.8); NEUTROPHILS # 11.3 10^3/uL (1.5-8.5); NEUTROPHILS % 82.6 % (36.0-66.0); PLATELET COUNT, AUTOMATED 276 10^3/uL (150-450); RED BLOOD COUNT 4.04 10^6/uL (4.00-5.40); WHITE BLOOD COUNT 13.7 10^3/uL (4.0-10.0)
--- NOTE | 2020-07-24 10:51 | REP ---
INDICATION: left ro dislocation vs fracture COMPARISON: None. TECHNIQUE: Internal rotation, external rotation, and Y view left shoulder. FINDINGS: Anteroinferior glenohumeral dislocation is appreciated. Humerus appears intact. Subtle injury to the glenoid cannot be excluded. Osseous structures demonstrate underlying age-related osteopenia. The acromioclavicular joint appears intact. IMPRESSION: Anteroinferior glenohumeral joint dislocation. No obvious proximal humeral fracture. <Electronically signed by Abhinav Morales > 07/24/20 1048
--- NOTE | 2020-07-24 10:53 | REP ---
INDICATION: left COMPARISON: None. TECHNIQUE: AP, lateral views of the left humerus. FINDINGS: Age-related osteopenia. Anteroinferior glenohumeral joint dislocation noted. Humerus appears intact and without acute fracture. IMPRESSION: Glenohumeral joint dislocation. No acute fracture or dislocation. <Electronically signed by Abhinav Morales > 07/24/20 1047
[2020-07-24 11:08] LABS: CALCIUM LEVEL 8.7 MG/DL (8.8-10.2); CREATININE FOR GFR 1.04 MG/DL (0.55-1.30); GLOMERULAR FILTRATION RATE 54.7 (>39); POTASSIUM SERUM 4.1 MEQ/L (3.5-5.1)
[2020-07-24] MEDS ORDERED: MORPHINE 4 MG/ML 1ML VIAL/SYRINGE (J2270) As Ordered ONE (11:31)
[2020-07-24] MEDS ORDERED: MORPHINE 2 MG/ML 1ML VIAL (J2270) As Ordered ONE (11:50)
[2020-07-24] MEDS: MORPHINE 2 MG/ML 1ML VIAL (J2270) IV PRN ×2 (11:56→12:38)
[2020-07-24] MEDS ORDERED: propofoL 200 MG/20 ML VIAL As Ordered ONE (11:57)
[2020-07-24] MEDS ORDERED: propofoL 200 MG/20 ML VIAL IV ONE (12:30)
--- NOTE | 2020-07-24 13:13 | REP ---
INDICATION: reduced COMPARISON: 07/24/2020 TECHNIQUE: Portable neutral and Y-views of the left shoulder. FINDINGS: Satisfactory reduction at the glenohumeral joint is appreciated. Acromioclavicular joint is normal. No acute fracture or further dislocation noted. IMPRESSION: Satisfactory reduction at the glenohumeral joint. No obvious acute fracture. <Electronically signed by Abhinav Morales > 07/24/20 [id number]
[2020-07-24 14:29] VITALS: BP 160/71
--- NOTE | 2020-07-24 15:04 | ECGEPIP ---
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
== END 2020-07-24 14:38 | disposition home or self-care (01) ==
LOC: M ED 10:06
DX: S43.005A Unspecified dislocation of left shoulder joint, initial encounter (principal); X50.0XXA Overexertion from strenuous movement or load, initial encounter; Y92.019 Unspecified place in single-family (private) house as the place of occurrence of the external cause; Y93.9 Activity, unspecified; I10 Essential (primary) hypertension; M81.8 Other osteoporosis without current pathological fracture; Z88.0 Allergy status to penicillin; Z88.1 Allergy status to other antibiotic agents; Z88.2 Allergy status to sulfonamides; Z88.6 Allergy status to analgesic agent; Z88.8 Allergy status to other drugs, medicaments and biological substances; Z79.899 Other long term (current) drug therapy
CPT/HCPCS: 23655; 73030; 73060; 80048; 85025; 93005; 96374; 96375; 99284; J2270

== ENCOUNTER 2021-01-27 11:43 | Emergency (ER) | payer MEDICARE, BC ==
[~2021-01-27] VITALS: Ht 167.6 cm; Wt 77.3 kg
[2021-01-27 11:43] VITALS: BP 181/84
--- NOTE | 2021-01-27 12:09 | REP ---
INDICATION: R/O DISLOCATION COMPARISON: None. TECHNIQUE: Internal rotation, external rotation, and Y view. FINDINGS: Generalized age-related changes are appreciated. There is no evidence for acute fracture or dislocation. IMPRESSION: No acute fracture or dislocation. <Electronically signed by Abhinav Morales > 01/27/21 [id number]
[2021-01-27] MEDS ORDERED: HYDR-3715 PO (12:28)
[2021-01-27] MEDS ORDERED: NORCO, ANEXSIA 5/325MG TABLET (HYDROcodone/ACETAMINOPHEN) PO ONE (12:30)
== END 2021-01-27 13:04 | disposition home or self-care (01) ==
LOC: M ED 11:43
DX: S43.001A Unspecified subluxation of right shoulder joint, initial encounter (principal); X50.0XXA Overexertion from strenuous movement or load, initial encounter; Y92.019 Unspecified place in single-family (private) house as the place of occurrence of the external cause; Y93.9 Activity, unspecified; Y99.9 Unspecified external cause status; I10 Essential (primary) hypertension; K21.9 Gastro-esophageal reflux disease without esophagitis; F17.200 Nicotine dependence, unspecified, uncomplicated; Z88.0 Allergy status to penicillin; Z88.2 Allergy status to sulfonamides; Z88.1 Allergy status to other antibiotic agents; Z88.8 Allergy status to other drugs, medicaments and biological substances; Z79.899 Other long term (current) drug therapy

== ENCOUNTER → 2021-04-22 | Outpatient (CLI) | payer MEDICARE, BC ==
[~2021-04-22] MED LIST changes: +HYDR-3715 PO
[2021-04-22 15:20] LABS: BASO # 0.1 10^3/uL (0.0-0.2); BASO % 0.5 % (0.0-1.0); EOS # 0.2 10^3/uL (0.0-0.5); EOS % 1.3 % (0.0-3.0); HEMOGLOBIN 13.6 g/dl (12.0-15.5); LYMPH # 2.3 10^3/uL (1.5-5.0); LYMPH % 19.1 % (24.0-44.0); MEAN CORPUSCULAR HEMOGLOBIN 34.1 pg (27.0-33.0); MEAN CORPUSCULAR HGB CONC 33.2 g/dl (32.0-36.5); MEAN CORPUSCULAR VOLUME 102.8 fl (80.0-96.0); MONO % 8.5 % (2.0-8.0); NEUTROPHILS # 8.5 10^3/uL (1.5-8.5); NEUTROPHILS % 70.1 % (36.0-66.0); PLATELET COUNT, AUTOMATED 264 10^3/uL (150-450); RED BLOOD COUNT 3.99 10^6/uL (4.00-5.40); WHITE BLOOD COUNT 12.1 10^3/uL (4.0-10.0)
[2021-04-22 15:38] LABS: HEMOGLOBIN A1c 5.5 %
[2021-04-22 15:51] LABS: ALBUMIN 3.1 GM/DL (3.2-5.2); ALT/SGPT 16 U/L (12-78); BILIRUBIN,TOTAL 0.3 MG/DL (0.2-1.0); BLOOD UREA NITROGEN 14 MG/DL (7-18); CALCIUM LEVEL 8.8 MG/DL (8.8-10.2); CARBON DIOXIDE LEVEL 32 MEQ/L (21-32); CHLORIDE LEVEL 106 MEQ/L (98-107); CHOLESTEROL LEVEL 159 MG/DL (<200); CHOLESTEROL RISK RATIO 2.789 (<5); CREATININE FOR GFR 0.94 MG/DL (0.55-1.30); FREE T4 1.01 NG/DL (0.76-1.46); GLOMERULAR FILTRATION RATE > 60.0 (>39); GLUCOSE, FASTING 85 MG/DL (70-100); HDL CHOLESTEROL 57 MG/DL (>40); LDL CHOLESTEROL 82 MG/DL (<100); NON-HDL-C 102 MG/DL; POTASSIUM SERUM 4.1 MEQ/L (3.5-5.1); SODIUM LEVEL 140 MEQ/L (136-145); TOTAL PROTEIN 6.5 GM/DL (6.4-8.2); TRIGLYCERIDES LEVEL 98 MG/DL (<150)
== END ==
LOC: M PLALAB 13:15
PROVIDERS: ATTEND Nurse Practitioner Family
DX: R73.01 Impaired fasting glucose (principal); E78.5 Hyperlipidemia, unspecified

== ENCOUNTER → 2021-06-21 | Outpatient (CLI) | payer MEDICARE, BC ==
[2021-06-21 17:58] LABS: BLOOD UREA NITROGEN 17 MG/DL (7-18); CALCIUM LEVEL 9.6 MG/DL (8.8-10.2); CARBON DIOXIDE LEVEL 30 MEQ/L (21-32); CHLORIDE LEVEL 109 MEQ/L (98-107); CREATININE FOR GFR 1.05 MG/DL (0.55-1.30); GLUCOSE, FASTING 91 MG/DL (70-100); POTASSIUM SERUM 5.3 MEQ/L (3.5-5.1); SODIUM LEVEL 141 MEQ/L (136-145); THYROID STIMULATING HORMONE 0.912 uIU/ML (0.358-3.740)
[2021-06-21 18:00] LABS: VITAMIN B12 LEVEL 624 PG/ML (247-911)
== END ==
LOC: M PLALAB 15:41
PROVIDERS: ATTEND Physician Assistant Medical
DX: R41.3 Other amnesia (principal); Z23 Encounter for immunization
CPT/HCPCS: 36415; 80048; 82607; 83655; 84439; 84443; 86780; 90682; G0008; G0463

== ENCOUNTER → 2021-06-24 | Outpatient (CLI) | payer MEDICARE, BC ==
[~2021-06-24] MED LIST changes: +ISOVUE-370 76% 100ML VIAL As Ordered ONE
--- NOTE | 2021-06-24 18:57 | REPVR ---
PROCEDURE INFORMATION: Exam: CT Head Without And With Contrast Exam date and time: 06/24/2021 5:53 PM Age: 76 years old Clinical indication: Altered mental status/memory loss TECHNIQUE: Imaging protocol: Computed tomography of the head without and with intravenous contrast. Radiation optimization: All CT scans at this facility use at least one of these dose optimization techniques: automated exposure control; mA and/or kV adjustment per patient size (includes targeted exams where dose is matched to clinical indication); or iterative reconstruction. Contrast material: ISOVUE 370; Contrast volume: 75 ml; Contrast route: INTRAVENOUS (IV); COMPARISON: NM Bone Scan Whole Body 04/21/2015 8:52 AM FINDINGS: Brain: There is no acute intracranial hemorrhage, cerebral edema, or midline shift. Age-related cerebral and cerebellar volume loss is present. No enhancing lesions were identified after the administration of contrast. Cerebral ventricles: No hydrocephalus. Paranasal sinuses: There is no acute sinusitis. Mastoid air cells: Poor pneumatization of the mastoids is likely due to remote/chronic inflammation. Orbital cavity: Unremarkable as visualized. Bones/joints: Unremarkable. No acute fracture. Soft tissues: Unremarkable. IMPRESSION: No acute intracranial abnormality. Electronically signed by: Volodymyr Mcdonnell On 06/24/2021 18:57:09 PM
== END ==
LOC: M RAD 17:30
PROVIDERS: ATTEND Physician Assistant Medical
DX: R41.3 Other amnesia (principal)
CPT/HCPCS: 70470; Q9967

== ENCOUNTER → 2021-09-06 | Outpatient (REF) | payer MEDICARE, BC ==
[~2021-09-06] MED LIST changes: -ISOVUE-370 76% 100ML VIAL As Ordered ONE
[2021-09-06 17:27] LABS: APPEARANCE, URINE HAZY (CLEAR); BACTERIA, URINE AUTO 1+ (NEGATIVE); BILIRUBIN, URINE AUTO NEGATIVE (NEGATIVE); BLOOD, URINE BLOOD NEGATIVE (NEGATIVE); COLOR, URINE YELLOW (YELLOW); GLUCOSE, URINE (UA) AUTO NEGATIVE (NEGATIVE); KETONE, URINE AUTO NEGATIVE (NEGATIVE); LEUKOCYTE ESTERASE, URINE AUTO 2+ (NEGATIVE); NITRITE, URINE AUTO NEGATIVE (NEGATIVE); PROTEIN, URINE AUTO NEGATIVE (NEGATIVE); RBC, URINE AUTO 2 /HPF (0-3); SPECIFIC GRAVITY URINE AUTO 1.016 (1.002-1.035); SQUAMOUS EPITHELIAL CELL UR AU 3 /HPF (0-6); UROBILINOGEN, URINE AUTO 0.2 mg/dL (0.0-2.0); WBC, URINE AUTO 4 /HPF (0-3)
== END ==
LOC: M LAB REF 16:55
PROVIDERS: ATTEND Nurse Practitioner Family
DX: N39.0 Urinary tract infection, site not specified (principal)

== ENCOUNTER 2022-02-16 19:36 | Inpatient (IN) | payer MEDICARE, BC ==
[~2022-02-16] VITALS: Ht 167.6 cm; Wt 78.0 kg
[2022-02-16] MEDS ORDERED: hydrALAZINE 20MG/ML 1ML VIAL (J0360 PER 20MG) IV STA (20:20)
[2022-02-16 20:51] LABS: BASO % 0.1 % (0.0-1.0); HEMATOCRIT 42.7 % (36.0-47.0); HEMOGLOBIN 14.6 g/dl (12.0-15.5); LYMPH % 4.7 % (24.0-44.0); MEAN CORPUSCULAR HEMOGLOBIN 33.7 pg (27.0-33.0); MEAN CORPUSCULAR HGB CONC 34.2 g/dl (32.0-36.5); MEAN CORPUSCULAR VOLUME 98.6 fl (80.0-96.0); MONO # 1.5 10^3/uL (0.0-0.8); MONO % 7.3 % (2.0-8.0); NEUTROPHILS # 18.1 10^3/uL (1.5-8.5); NEUTROPHILS % 87.2 % (36.0-66.0); PLATELET COUNT, AUTOMATED 284 10^3/uL (150-450); RED BLOOD COUNT 4.33 10^6/uL (4.00-5.40); WHITE BLOOD COUNT 20.7 10^3/uL (4.0-10.0)
[2022-02-16] MEDS: risperiDONE 1 MG TAB PO SCH (21:00)
[2022-02-16] MEDS: ASPIRIN 325 MG TAB PO SCH (21:00)
[2022-02-16 21:15] LABS: CALCIUM LEVEL 9.9 MG/DL (8.8-10.2); CREATININE FOR GFR 1.01 MG/DL (0.55-1.30); FREE T4 1.37 NG/DL (0.76-1.46); GLOMERULAR FILTRATION RATE 56.3 (>39); MAGNESIUM LEVEL 2.8 MG/DL (1.8-2.4); POTASSIUM SERUM 3.5 MEQ/L (3.5-5.1); THYROID STIMULATING HORMONE 0.336 uIU/ML (0.358-3.740)
[2022-02-16 21:23] LABS: CK-MB VALUE MASS 19.8 NG/ML (<3.6); MB/CK RELATIVE INDEX 1.04 (< OR =4)
[2022-02-16] MEDS ORDERED: cefTRIAXone SOD 1 GM in D5W MINI-BAG PLUS 50 ML IV ONE (21:25)
[2022-02-16] MEDS ORDERED: NS 500 ML IV ONE (22:05)
[2022-02-16 22:28] LABS: CK-MB VALUE MASS 20.5 NG/ML (<3.6); MB/CK RELATIVE INDEX 1.11 (< OR =4)
[2022-02-16 22:53] LABS: AMPHETAMINES LEVEL URINE NEGATIVE (NEGATIVE); BARBITURATES URINE NEGATIVE (NEGATIVE); BENZODIAZEPINES URINE NEGATIVE (NEGATIVE); CANNABINOIDS URINE POSITIVE (NEGATIVE); COCAINE METABOLITE URINE NEGATIVE (NEGATIVE); METHADONE URINE NEGATIVE (NEGATIVE); OPIATES URINE NEGATIVE (NEGATIVE); PHENCYCLIDINE URINE NEGATIVE (NEGATIVE)
[2022-02-16] MEDS ORDERED: NS 1,000 ML IV ONE (23:15)
[2022-02-16] MEDS ORDERED: NS 1,000 ML IV SCH (23:15)
[2022-02-16 23:47] LABS: RSV AMPLIFICATION NEGATIVE (NEGATIVE)
[2022-02-17 01:13] LABS: HEMOGLOBIN A1c 5.5 %
[2022-02-17] MEDS ORDERED: GNP99TAB3 PO (02:35)
[2022-02-17] MEDS ORDERED: DIPH25CA32 PO (02:35)
[2022-02-17] MEDS ORDERED: MAGN400T35 PO (02:35)
[2022-02-17] MEDS ORDERED: ZOLP5TAB PO (02:35)
[2022-02-17] MEDS ORDERED: FURO20TA2 PO (02:35)
[2022-02-17] MEDS ORDERED: BACITAB PO (02:35)
[2022-02-17] MEDS ORDERED: VITA100093 PO (02:35)
[2022-02-17] MEDS ORDERED: RISP-8 PO (02:35)
[2022-02-17] MEDS ORDERED: PREP1SUP PR (02:35)
[2022-02-17] MEDS ORDERED: FISH1000 PO (02:35)
[2022-02-17] MEDS ORDERED: HOME MED LIST COMPLETE! XX SCH (02:35)
[2022-02-17] MEDS ORDERED: BACL10TA2 PO (02:35)
[2022-02-17] MEDS ORDERED: DOXYCYCLINE HYCLATE 100 MG in D5W MINI-BAG PLUS 100 ML IV ONE (03:00)
[2022-02-17] MEDS ORDERED: BACLOFEN 10 MG TAB PO PRN (03:00)
[2022-02-17] MEDS ORDERED: POLYVINYL ALCOHOL OPHTH SOLN 15 ML(LIQUITEARS) OU PRN (03:15)
[2022-02-17 06:40] LABS: HEMATOCRIT 35.6 % (36.0-47.0); MEAN CORPUSCULAR HEMOGLOBIN 33.1 pg (27.0-33.0); MEAN CORPUSCULAR HGB CONC 33.1 g/dl (32.0-36.5); PLATELET COUNT, AUTOMATED 208 10^3/uL (150-450); RED BLOOD COUNT 3.56 10^6/uL (4.00-5.40); WHITE BLOOD COUNT 17.4 10^3/uL (4.0-10.0)
[2022-02-17 06:45] LABS: HEMOGLOBIN 11.8 g/dl (12.0-15.5)
[2022-02-17 07:04] LABS: BLOOD UREA NITROGEN 26 MG/DL (7-18); CALCIUM LEVEL 7.9 MG/DL (8.8-10.2); CARBON DIOXIDE LEVEL 28 MEQ/L (21-32); CHLORIDE LEVEL 112 MEQ/L (98-107); CREATININE FOR GFR 0.82 MG/DL (0.55-1.30); GLOMERULAR FILTRATION RATE > 60.0 (>39); GLUCOSE, FASTING 111 MG/DL (70-100); MAGNESIUM LEVEL 2.4 MG/DL (1.8-2.4); POTASSIUM SERUM 2.8 MEQ/L (3.5-5.1); SODIUM LEVEL 145 MEQ/L (136-145)
[2022-02-17] MEDS: **hydrALAZINE HCL** 25 MG TAB PO SCH ×4 (08:12→23:50)
[2022-02-17] MEDS: ramipriL 5 MG CAP PO SCH ×2 (09:00→22:02)
[2022-02-17] MEDS: CYANOCOBALAMIN 500 MCG TAB PO SCH (10:06)
[2022-02-17] MEDS: LACTOBACILLUS ACIDOPHILUS CAP (BACID) PO SCH (10:07)
[2022-02-17] MEDS: PANTOPRAZOLE 40MG TAB (PROTONIX) PO SCH (10:07)
[2022-02-17] MEDS: VITAMIN D 1,000 INTERNATIONAL UNITS TABLET PO SCH (10:07)
[2022-02-17] MEDS: POTASSIUM CHLORIDE 10MEQ SR TABLET PO SCH (10:07)
[2022-02-17] MEDS: ENOXAPARIN 40MG/0.4ML SYRINGE (J1650 PER 10MG) SC SCH (10:08)
[2022-02-17] MEDS: MAGNESIUM OXIDE 400MG TAB (MAG-OX) PO SCH (10:08)
[2022-02-17 12:00] VITALS: BP 152/51
[2022-02-17] MEDS ORDERED: POTASSIUM CHLORIDE 10MEQ SR TABLET PO ONE (12:00)
[2022-02-17 14:00] VITALS: BP 126/48
[2022-02-17] MEDS ORDERED: MOM 30ML SUSPENSION UDC PO ONE (15:35)
[2022-02-17] MEDS: DOXYCYCLINE HYCLATE 100 MG in D5W MINI-BAG PLUS 100 ML IV SCH (15:59)
[2022-02-17 17:00] VITALS: BP_SYST 148; BP_SYST 151; BP_SYST 153; BP_DIAS 49; BP_DIAS 52; BP_DIAS 55
[2022-02-17 20:37] VITALS: BP 167/71
[2022-02-17 20:58] LABS: CREATININE FOR GFR 0.97 MG/DL (0.55-1.30); POTASSIUM SERUM 4.2 MEQ/L (3.5-5.1)
[2022-02-17] MEDS: SENOKOT S TAB PO SCH (21:00)
[2022-02-17] MEDS: ASPIRIN 325 MG TAB PO SCH (21:06)
[2022-02-17] MEDS: amLODIPine 5 MG TAB PO SCH (21:09)
[2022-02-17] MEDS: risperiDONE 1 MG TAB PO SCH (21:10)
[2022-02-17] MEDS ORDERED: traZODone 50 MG TAB PO ONE (22:00)
[2022-02-17] MEDS ORDERED: cefTRIAXone SOD 1 GM in D5W MINI-BAG PLUS 50 ML IV SCH (22:00)
[2022-02-18 01:00] VITALS: BP_SYST 152; BP_SYST 159; BP_DIAS 62; BP_DIAS 72
[2022-02-18] MEDS: DOXYCYCLINE HYCLATE 100 MG in D5W MINI-BAG PLUS 100 ML IV SCH (02:53)
[2022-02-18 06:00] VITALS: BP 132/49
[2022-02-18] MEDS: **hydrALAZINE HCL** 25 MG TAB PO SCH ×3 (06:00→17:44)
[2022-02-18 06:45] LABS: BASO # 0.1 10^3/uL (0.0-0.2); BASO % 0.3 % (0.0-1.0); EOS # 0.1 10^3/uL (0.0-0.5); EOS % 0.6 % (0.0-3.0); HEMATOCRIT 36.9 % (36.0-47.0); HEMOGLOBIN 11.9 g/dl (12.0-15.5); LYMPH # 2.3 10^3/uL (1.5-5.0); LYMPH % 13.4 % (24.0-44.0); MEAN CORPUSCULAR HEMOGLOBIN 32.6 pg (27.0-33.0); MEAN CORPUSCULAR HGB CONC 32.2 g/dl (32.0-36.5); MEAN CORPUSCULAR VOLUME 101.1 fl (80.0-96.0); MONO # 1.5 10^3/uL (0.0-0.8); MONO % 9.1 % (2.0-8.0); NEUTROPHILS # 12.8 10^3/uL (1.5-8.5); PLATELET COUNT, AUTOMATED 234 10^3/uL (150-450); RED BLOOD COUNT 3.65 10^6/uL (4.00-5.40); WHITE BLOOD COUNT 16.9 10^3/uL (4.0-10.0)
[2022-02-18 07:05] LABS: BLOOD UREA NITROGEN 28 MG/DL (7-18); CALCIUM LEVEL 9.4 MG/DL (8.8-10.2); CARBON DIOXIDE LEVEL 26 MEQ/L (21-32); CHLORIDE LEVEL 112 MEQ/L (98-107); CREATININE FOR GFR 0.87 MG/DL (0.55-1.30); GLOMERULAR FILTRATION RATE > 60.0 (>39); GLUCOSE, FASTING 102 MG/DL (70-100); POTASSIUM SERUM 4.4 MEQ/L (3.5-5.1); SODIUM LEVEL 145 MEQ/L (136-145)
[2022-02-18] MEDS: ramipriL 5 MG CAP PO SCH ×2 (10:13→20:32)
[2022-02-18] MEDS: ENOXAPARIN 40MG/0.4ML SYRINGE (J1650 PER 10MG) SC SCH (10:13)
[2022-02-18] MEDS: VITAMIN D 1,000 INTERNATIONAL UNITS TABLET PO SCH (10:14)
[2022-02-18] MEDS: POTASSIUM CHLORIDE 10MEQ SR TABLET PO SCH (10:14)
[2022-02-18] MEDS: LACTOBACILLUS ACIDOPHILUS CAP (BACID) PO SCH (10:14)
[2022-02-18] MEDS: amLODIPine 5 MG TAB PO SCH (10:14)
[2022-02-18] MEDS: PANTOPRAZOLE 40MG TAB (PROTONIX) PO SCH (10:15)
[2022-02-18] MEDS: MAGNESIUM OXIDE 400MG TAB (MAG-OX) PO SCH (10:15)
[2022-02-18] MEDS: CYANOCOBALAMIN 500 MCG TAB PO SCH (10:15)
[2022-02-18 17:45] VITALS: BP 161/72
[2022-02-18] MEDS: ASPIRIN 325 MG TAB PO SCH (20:28)
[2022-02-18] MEDS: risperiDONE 1 MG TAB PO SCH (20:32)
[2022-02-18] MEDS: SENOKOT S TAB PO SCH (20:32)
[2022-02-18 20:37] VITALS: BP 160/68
[2022-02-19] MEDS: RAMELTEON 8 MG TAB (ROZEREM) PO PRN (00:21)
[2022-02-19] MEDS: **hydrALAZINE HCL** 25 MG TAB PO SCH ×4 (00:22→18:18)
[2022-02-19 00:30] VITALS: BP 161/68
[2022-02-19 05:26] VITALS: BP 161/63
[2022-02-19 08:38] VITALS: BP 172/66
[2022-02-19] MEDS: ramipriL 5 MG CAP PO SCH ×2 (08:40→21:08)
[2022-02-19] MEDS: PANTOPRAZOLE 40MG TAB (PROTONIX) PO SCH (08:41)
[2022-02-19] MEDS: MAGNESIUM OXIDE 400MG TAB (MAG-OX) PO SCH (08:41)
[2022-02-19] MEDS: ENOXAPARIN 40MG/0.4ML SYRINGE (J1650 PER 10MG) SC SCH (08:41)
[2022-02-19] MEDS: CYANOCOBALAMIN 500 MCG TAB PO SCH (08:41)
[2022-02-19] MEDS: VITAMIN D 1,000 INTERNATIONAL UNITS TABLET PO SCH (08:41)
[2022-02-19] MEDS: POTASSIUM CHLORIDE 10MEQ SR TABLET PO SCH (08:41)
[2022-02-19] MEDS: LACTOBACILLUS ACIDOPHILUS CAP (BACID) PO SCH (08:41)
[2022-02-19 12:51] VITALS: BP 171/65
[2022-02-19] MEDS: ASPIRIN 325 MG TAB PO SCH (20:59)
[2022-02-19] MEDS: SENOKOT S TAB PO SCH (21:00)
[2022-02-19] MEDS: ACETAMINOPHEN TAB 650MG DOSE (2X325MG) PO PRN (21:08)
[2022-02-19] MEDS: risperiDONE 1 MG TAB PO SCH (21:09)
[2022-02-20] MEDS: **hydrALAZINE HCL** 25 MG TAB PO SCH ×5 (00:29→23:43)
[2022-02-20 06:00] VITALS: BP 153/60
[2022-02-20] MEDS: LACTOBACILLUS ACIDOPHILUS CAP (BACID) PO SCH (10:36)
[2022-02-20] MEDS: POTASSIUM CHLORIDE 10MEQ SR TABLET PO SCH (10:36)
[2022-02-20] MEDS: PANTOPRAZOLE 40MG TAB (PROTONIX) PO SCH (10:36)
[2022-02-20] MEDS: VITAMIN D 1,000 INTERNATIONAL UNITS TABLET PO SCH (10:37)
[2022-02-20] MEDS: ramipriL 5 MG CAP PO SCH ×2 (10:37→21:10)
[2022-02-20] MEDS: ENOXAPARIN 40MG/0.4ML SYRINGE (J1650 PER 10MG) SC SCH (10:37)
[2022-02-20] MEDS: CYANOCOBALAMIN 500 MCG TAB PO SCH (10:37)
[2022-02-20] MEDS: ACETAMINOPHEN TAB 650MG DOSE (2X325MG) PO PRN (10:38)
[2022-02-20] MEDS: MAGNESIUM OXIDE 400MG TAB (MAG-OX) PO SCH (10:39)
[2022-02-20] MEDS: ASPIRIN 325 MG TAB PO SCH (21:07)
[2022-02-20] MEDS: RAMELTEON 8 MG TAB (ROZEREM) PO PRN (21:07)
[2022-02-20] MEDS: risperiDONE 1 MG TAB PO SCH (21:07)
[2022-02-20] MEDS: SENOKOT S TAB PO SCH (21:07)
[2022-02-20] MEDS ORDERED: diphenhydrAMINE 25MG CAP PO PRN (22:15)
[2022-02-21 06:00] VITALS: BP 164/54
[2022-02-21] MEDS: **hydrALAZINE HCL** 25 MG TAB PO SCH ×4 (06:22→23:05)
[2022-02-21] MEDS: ramipriL 5 MG CAP PO SCH ×2 (08:53→23:04)
[2022-02-21] MEDS: POTASSIUM CHLORIDE 10MEQ SR TABLET PO SCH (08:53)
[2022-02-21] MEDS: VITAMIN D 1,000 INTERNATIONAL UNITS TABLET PO SCH (08:53)
[2022-02-21] MEDS: LACTOBACILLUS ACIDOPHILUS CAP (BACID) PO SCH (08:53)
[2022-02-21] MEDS: MAGNESIUM OXIDE 400MG TAB (MAG-OX) PO SCH (08:53)
[2022-02-21] MEDS: PANTOPRAZOLE 40MG TAB (PROTONIX) PO SCH (08:53)
[2022-02-21] MEDS: CYANOCOBALAMIN 500 MCG TAB PO SCH (08:53)
[2022-02-21] MEDS: ENOXAPARIN 40MG/0.4ML SYRINGE (J1650 PER 10MG) SC SCH (08:54)
[2022-02-21] MEDS: ACETAMINOPHEN TAB 650MG DOSE (2X325MG) PO PRN (15:27)
[2022-02-21] MEDS: ASPIRIN 325 MG TAB PO SCH (23:01)
[2022-02-21] MEDS: risperiDONE 1 MG TAB PO SCH (23:04)
[2022-02-21] MEDS: SENOKOT S TAB PO SCH (23:07)
[2022-02-21] MEDS ORDERED: ACETAMINOPHEN 500 MG TAB PO ONE (23:20)
[2022-02-22] MEDS ORDERED: NYSTATIN 100,000 UNITS/GM TOPICAL PWD 15 GM TOP PRN (00:35)
[2022-02-22 06:00] VITALS: BP 146/43
[2022-02-22] MEDS: **hydrALAZINE HCL** 25 MG TAB PO SCH ×2 (06:57→12:00)
[2022-02-22] MEDS: LACTOBACILLUS ACIDOPHILUS CAP (BACID) PO SCH (08:51)
[2022-02-22] MEDS: VITAMIN D 1,000 INTERNATIONAL UNITS TABLET PO SCH (08:51)
[2022-02-22] MEDS: POTASSIUM CHLORIDE 10MEQ SR TABLET PO SCH ×2 (08:51→09:00)
[2022-02-22] MEDS: PANTOPRAZOLE 40MG TAB (PROTONIX) PO SCH (08:51)
[2022-02-22] MEDS: CYANOCOBALAMIN 500 MCG TAB PO SCH (08:52)
[2022-02-22] MEDS: ENOXAPARIN 40MG/0.4ML SYRINGE (J1650 PER 10MG) SC SCH (08:52)
[2022-02-22] MEDS: MAGNESIUM OXIDE 400MG TAB (MAG-OX) PO SCH ×2 (08:52→09:00)
[2022-02-22] MEDS: ramipriL 5 MG CAP PO SCH (08:53)
[2022-02-22] MEDS: ACETAMINOPHEN TAB 650MG DOSE (2X325MG) PO PRN (11:02)
[2022-02-22 12:00] VITALS: BP 148/36
[2022-02-22 12:40] VITALS: BP 132/38
[2022-02-22] MEDS ORDERED: ACET1TAB55 PO (13:23)
== END 2022-02-22 15:53 | disposition home health service (06) | DRG 948 ==
LOC: M ED 19:36 → M ED INP 23:13 → ENRESERV 02-17 11:16 → M MSPAV 02-17 12:00
PROVIDERS: ADMIT Internal Medicine; ATTEND Internal Medicine
DX: R53.81 Other malaise (principal); M62.82 Rhabdomyolysis; F03.91 Unspecified dementia, unspecified severity, with behavioral disturbance; I10 Essential (primary) hypertension; K21.9 Gastro-esophageal reflux disease without esophagitis; G47.33 Obstructive sleep apnea (adult) (pediatric); E78.5 Hyperlipidemia, unspecified; E53.8 Deficiency of other specified B group vitamins; K57.30 Diverticulosis of large intestine without perforation or abscess without bleeding; Z85.42 Personal history of malignant neoplasm of other parts of uterus; J43.8 Other emphysema; Z79.899 Other long term (current) drug therapy; Z79.82 Long term (current) use of aspirin; Z88.8 Allergy status to other drugs, medicaments and biological substances; Z88.6 Allergy status to analgesic agent; Z88.2 Allergy status to sulfonamides; Z88.0 Allergy status to penicillin; Z98.41 Cataract extraction status, right eye; Z98.42 Cataract extraction status, left eye; D72.829 Elevated white blood cell count, unspecified; E83.41 Hypermagnesemia; M79.7 Fibromyalgia; K59.00 Constipation, unspecified; F17.200 Nicotine dependence, unspecified, uncomplicated; Z91.81 History of falling

== ENCOUNTER → 2022-11-19 | Outpatient (REF) | payer MEDICARE, BC, MEDICAID ==
[~2022-11-19] MED LIST changes: +ACET1TAB55 PO; +BACITAB PO; +BACL10TA2 PO; +DIPH-435 PO; +FISH1000 PO; +FURO20TA2 PO; +GNP99TAB3 PO; +MAGN400T35 PO; +PREP1SUP PR; +RISP-8 PO; +VITA100093 PO; +ZOLP5TAB PO
[2022-11-19 08:19] LABS: HEMATOCRIT 33.2 % (36.0-47.0); HEMOGLOBIN 10.6 g/dl (12.0-15.5); MEAN CORPUSCULAR HEMOGLOBIN 30.5 pg (27.0-33.0); MEAN CORPUSCULAR HGB CONC 31.9 g/dl (32.0-36.5); MEAN CORPUSCULAR VOLUME 95.4 fl (80.0-96.0); PLATELET COUNT, AUTOMATED 268 10^3/uL (150-450); RED BLOOD COUNT 3.48 10^6/uL (4.00-5.40)
[2022-11-19 08:45] LABS: ALBUMIN 3.2 G/DL (3.2-5.2); ALKALINE PHOSPHATASE 81 U/L (46-116); ALT/SGPT < 9 U/L (7.0-40); AST/SGOT 14 U/L (<34); BILIRUBIN,TOTAL 0.4 MG/DL (0.3-1.2); BLOOD UREA NITROGEN 18 MG/DL (9-23); CALCIUM LEVEL 8.8 MG/DL (8.3-10.6); CARBON DIOXIDE LEVEL 32 MMOL/L (20-31); CHLORIDE LEVEL 100 MMOL/L (98-107); CREATININE FOR GFR 0.86 MG/DL (0.55-1.30); GLOMERULAR FILTRATION RATE > 60.0 (>39); GLUCOSE, FASTING 133 MG/DL (74-106); POTASSIUM SERUM 3.9 MMOL/L (3.5-5.1); SODIUM LEVEL 139 MMOL/L (136-145); TOTAL PROTEIN 6.3 G/DL (5.7-8.2)
== END ==
LOC: SKLAB4 11-18 18:11
PROVIDERS: ATTEND Internal Medicine
DX: R41.89 Other symptoms and signs involving cognitive functions and awareness (principal)

== ENCOUNTER → 2022-12-21 | Outpatient (REF) | payer MEDICARE, BC, MEDICAID | LOC: SKLAB6 07:00 | PROVIDERS: ATTEND Internal Medicine | DX: E53.8 Deficiency of other specified B group vitamins (principal); Z79.899 Other long term (current) drug therapy ==

== ENCOUNTER 2023-06-22 11:51 | Outpatient (CLI) | payer MEDICARE, BC ==
[~2023-06-22] VITALS: Ht 167.6 cm; Wt 78.0 kg
[~2023-06-22 11:51] MED LIST changes: +DICY-61 PO; -DICY10CA13 PO
[2023-06-22] MEDS ORDERED: FUROSEMIDE 40MG/4ML VIAL IV ONE (12:15)
[2023-06-22 12:26] VITALS: BP 171/81; O2SAT 96
[2023-06-22 12:30] VITALS: BP 174/81; TEMP 97; O2SAT 96
[2023-06-22 12:45] VITALS: BP 168/84; TEMP 97.1; O2SAT 94
[2023-06-22 14:27] VITALS: BP 170/68; TEMP 98.2; O2SAT 97
[2023-06-22 14:45] VITALS: BP 172/88; TEMP 97.4; O2SAT 95
[2023-06-22 16:00] VITALS: BP 161/78; TEMP 97.6; O2SAT 96
== END 2023-06-22 16:20 ==
LOC: M INFU 11:51
PROVIDERS: ATTEND Nurse Practitioner
DX: D64.9 Anemia, unspecified (principal); N18.9 Chronic kidney disease, unspecified; Z88.0 Allergy status to penicillin; Z88.1 Allergy status to other antibiotic agents; Z88.2 Allergy status to sulfonamides; Z88.5 Allergy status to narcotic agent; Z88.6 Allergy status to analgesic agent; Z88.8 Allergy status to other drugs, medicaments and biological substances
CPT/HCPCS: 36415; 36430; 80048; 85027; 86850; 86900; 86901; 86920; 96374; J1940; P9016

== ENCOUNTER → 2023-06-27 | Outpatient (REF) | payer MEDICARE, BC ==
[2023-06-27 11:01] LABS: HEMATOCRIT 28.5 % (36.0-47.0); HEMOGLOBIN 8.3 g/dl (12.0-15.5); MEAN CORPUSCULAR HEMOGLOBIN 24.9 pg (27.0-33.0); MEAN CORPUSCULAR HGB CONC 29.1 g/dl (32.0-36.5); MEAN CORPUSCULAR VOLUME 85.6 fl (80.0-96.0); PLATELET COUNT, AUTOMATED 351 10^3/uL (150-450); RED BLOOD COUNT 3.33 10^6/uL (4.00-5.40); WHITE BLOOD COUNT 8.7 10^3/uL (4.0-10.0)
[2023-06-27 11:43] LABS: BLOOD UREA NITROGEN 22 MG/DL (9-23); CALCIUM LEVEL 8.6 MG/DL (8.3-10.6); CARBON DIOXIDE LEVEL 30 MMOL/L (20-31); CHLORIDE LEVEL 104 MMOL/L (98-107); CREATININE FOR GFR 0.83 MG/DL (0.55-1.30); GLOMERULAR FILTRATION RATE > 60.0 (>32); GLUCOSE, FASTING 106 MG/DL (74-106); IRON (FE) 43 UG/DL (50-170); PERCENT SATURATION 11.4 % (13.2-45.0); POTASSIUM SERUM 4.8 MMOL/L (3.5-5.1); SODIUM LEVEL 141 MMOL/L (136-145); TOTAL IRON BINDING CAPACITY 378 UG/DL (250-425)
[2023-06-27 11:47] LABS: VITAMIN B12 LEVEL 399 PG/ML (211-911)
== END ==
LOC: SKLAB6 09:17
PROVIDERS: ATTEND Internal Medicine
DX: D64.9 Anemia, unspecified (principal)

== ENCOUNTER → 2023-06-27 | Outpatient (REF) | payer MEDICARE, BC | LOC: SKLAB6 13:40 | PROVIDERS: ATTEND Internal Medicine | DX: D64.9 Anemia, unspecified (principal) ==

== ENCOUNTER → 2023-07-04 | Outpatient (REF) | payer MEDICARE, BC ==
[2023-07-04 08:04] LABS: HEMATOCRIT 30.3 % (36.0-47.0); HEMOGLOBIN 8.9 g/dl (12.0-15.5); MEAN CORPUSCULAR HEMOGLOBIN 25.4 pg (27.0-33.0); MEAN CORPUSCULAR HGB CONC 29.4 g/dl (32.0-36.5); MEAN CORPUSCULAR VOLUME 86.3 fl (80.0-96.0); PLATELET COUNT, AUTOMATED 340 10^3/uL (150-450); RED BLOOD COUNT 3.51 10^6/uL (4.00-5.40)
== END ==
LOC: SKLAB6 06:54
PROVIDERS: ATTEND Internal Medicine
DX: D64.9 Anemia, unspecified (principal)

== ENCOUNTER → 2023-07-18 | Outpatient (REF) | payer MEDICARE, BC ==
[2023-07-18 07:44] LABS: HEMATOCRIT 26.9 % (36.0-47.0); HEMOGLOBIN 7.8 g/dl (12.0-15.5); MEAN CORPUSCULAR HEMOGLOBIN 25.7 pg (27.0-33.0); MEAN CORPUSCULAR VOLUME 88.5 fl (80.0-96.0); PLATELET COUNT, AUTOMATED 340 10^3/uL (150-450); RED BLOOD COUNT 3.04 10^6/uL (4.00-5.40); WHITE BLOOD COUNT 11.5 10^3/uL (4.0-10.0)
== END ==
LOC: SKLAB6 07:00
PROVIDERS: ATTEND Internal Medicine
DX: D64.9 Anemia, unspecified (principal)

== ENCOUNTER → 2023-07-25 | Outpatient (REF) | payer MEDICARE, BC ==
[2023-07-25 11:57] LABS: HEMATOCRIT 26.7 % (36.0-47.0); MEAN CORPUSCULAR HEMOGLOBIN 25.9 pg (27.0-33.0); MEAN CORPUSCULAR VOLUME 86.4 fl (80.0-96.0); PLATELET COUNT, AUTOMATED 309 10^3/uL (150-450); RED BLOOD COUNT 3.09 10^6/uL (4.00-5.40); WHITE BLOOD COUNT 9.4 10^3/uL (4.0-10.0)
== END ==
LOC: SKLAB6 11:19
PROVIDERS: ATTEND Internal Medicine
DX: D64.9 Anemia, unspecified (principal)

== ENCOUNTER → 2023-08-09 | Outpatient (REF) | payer MEDICARE, BC ==
[2023-08-09 07:51] LABS: HEMATOCRIT 26.6 % (36.0-47.0); MEAN CORPUSCULAR HEMOGLOBIN 26.4 pg (27.0-33.0); MEAN CORPUSCULAR HGB CONC 30.1 g/dl (32.0-36.5); MEAN CORPUSCULAR VOLUME 87.8 fl (80.0-96.0); PLATELET COUNT, AUTOMATED 399 10^3/uL (150-450); RED BLOOD COUNT 3.03 10^6/uL (4.00-5.40); WHITE BLOOD COUNT 9.3 10^3/uL (4.0-10.0)
== END ==
LOC: SKLAB6 06:35
PROVIDERS: ATTEND Internal Medicine
DX: D64.9 Anemia, unspecified (principal)

== ENCOUNTER → 2023-09-15 | Outpatient (REF) | LOC: SKLAB6 01:22 | PROVIDERS: ATTEND Internal Medicine | DX: D64.9 Anemia, unspecified (principal); Z53.8 Procedure and treatment not carried out for other reasons ==

== ENCOUNTER → 2023-09-16 | Outpatient (REF) | payer MEDICARE, MEDICAID ==
[~2023-09-16] MED LIST changes: +RISP-105 PO; -RISP-8 PO
== END ==
LOC: SKLAB6 09-14 07:00
PROVIDERS: ATTEND Internal Medicine
DX: D64.9 Anemia, unspecified (principal)

== ENCOUNTER 2023-09-17 08:29 | Outpatient (CLI) | payer MEDICARE, BC, MEDICAID ==
[~2023-09-17] VITALS: Ht 167.6 cm; Wt 78.0 kg
[~2023-09-17 08:29] MED LIST changes: -RISP-105 PO; +RISP-8 PO
[2023-09-17] MEDS ORDERED: FUROSEMIDE 40MG/4ML VIAL IV ONE (08:30)
[2023-09-17 09:15] VITALS: BP 160/80; TEMP 98.5; O2SAT 96
[2023-09-17 09:52] VITALS: BP 162/70; TEMP 98
[2023-09-17 11:30] VITALS: BP 170/62; TEMP 98.6; O2SAT 95
[2023-09-17 12:15] VITALS: BP 172/64; TEMP 98; O2SAT 95
[2023-09-17 13:15] VITALS: BP 172/66; TEMP 97.7; O2SAT 95
[2023-09-17 14:00] VITALS: BP 174/62; O2SAT 94
== END 2023-09-17 14:00 ==
LOC: M INFU 08:29
PROVIDERS: ATTEND Internal Medicine
DX: D64.9 Anemia, unspecified (principal); Z88.0 Allergy status to penicillin; Z88.1 Allergy status to other antibiotic agents; Z88.2 Allergy status to sulfonamides; Z88.5 Allergy status to narcotic agent; Z88.8 Allergy status to other drugs, medicaments and biological substances
CPT/HCPCS: 36430; 86920; 96372; J1940; P9016

== ENCOUNTER → 2023-09-18 | Outpatient (REF) ==
[~2023-09-18] MED LIST changes: +RISP-105 PO; -RISP-8 PO
== END ==
LOC: SKLAB6 07:00
PROVIDERS: ATTEND Internal Medicine
DX: D64.9 Anemia, unspecified (principal)

== ENCOUNTER → 2023-09-20 | Outpatient (REF) | payer MEDICARE, BC, MEDICAID ==
[2023-09-20 09:33] LABS: HEMATOCRIT 33.1 % (36.0-47.0); HEMOGLOBIN 10.2 g/dl (12.0-15.5); MEAN CORPUSCULAR HEMOGLOBIN 26.6 pg (27.0-33.0); MEAN CORPUSCULAR HGB CONC 30.8 g/dl (32.0-36.5); MEAN CORPUSCULAR VOLUME 86.4 fl (80.0-96.0); PLATELET COUNT, AUTOMATED 352 10^3/uL (150-450); RED BLOOD COUNT 3.83 10^6/uL (4.00-5.40); WHITE BLOOD COUNT 11.4 10^3/uL (4.0-10.0)
== END ==
LOC: SKLAB6 06:42
PROVIDERS: ATTEND Internal Medicine
DX: D64.9 Anemia, unspecified (principal)

== ENCOUNTER → 2023-09-23 | Outpatient (REF) | payer MEDICARE, BC, MEDICAID | LOC: SKLAB6 12:11 | PROVIDERS: ATTEND Internal Medicine | DX: R05.9 Cough, unspecified (principal) ==

== ENCOUNTER → 2023-09-27 | Outpatient (REF) | payer MEDICARE, BC, MEDICAID ==
[2023-09-27 07:49] LABS: HEMATOCRIT 33.5 % (36.0-47.0); HEMOGLOBIN 10.3 g/dl (12.0-15.5); MEAN CORPUSCULAR HEMOGLOBIN 27.3 pg (27.0-33.0); MEAN CORPUSCULAR HGB CONC 30.7 g/dl (32.0-36.5); MEAN CORPUSCULAR VOLUME 88.9 fl (80.0-96.0); PLATELET COUNT, AUTOMATED 285 10^3/uL (150-450); RED BLOOD COUNT 3.77 10^6/uL (4.00-5.40); WHITE BLOOD COUNT 9.7 10^3/uL (4.0-10.0)
== END ==
LOC: SKLAB6 06:50
PROVIDERS: ATTEND Internal Medicine
DX: D64.9 Anemia, unspecified (principal)

== ENCOUNTER → 2023-10-04 | Outpatient (REF) | payer MEDICARE, BC, MEDICAID ==
[2023-10-04 12:19] LABS: HEMATOCRIT 33.2 % (36.0-47.0); HEMOGLOBIN 10.3 g/dl (12.0-15.5); MEAN CORPUSCULAR HEMOGLOBIN 27.7 pg (27.0-33.0); MEAN CORPUSCULAR VOLUME 89.2 fl (80.0-96.0); PLATELET COUNT, AUTOMATED 279 10^3/uL (150-450); RED BLOOD COUNT 3.72 10^6/uL (4.00-5.40); WHITE BLOOD COUNT 7.9 10^3/uL (4.0-10.0)
== END ==
LOC: SKLAB6 11:41
PROVIDERS: ATTEND Internal Medicine
DX: D64.9 Anemia, unspecified (principal)

== ENCOUNTER → 2023-10-11 | Outpatient (REF) | payer MEDICARE, BC, MEDICAID ==
[2023-10-11 08:50] LABS: HEMATOCRIT 35.1 % (36.0-47.0); HEMOGLOBIN 10.8 g/dl (12.0-15.5); MEAN CORPUSCULAR HEMOGLOBIN 28.1 pg (27.0-33.0); MEAN CORPUSCULAR HGB CONC 30.8 g/dl (32.0-36.5); MEAN CORPUSCULAR VOLUME 91.4 fl (80.0-96.0); PLATELET COUNT, AUTOMATED 254 10^3/uL (150-450); RED BLOOD COUNT 3.84 10^6/uL (4.00-5.40); WHITE BLOOD COUNT 9.2 10^3/uL (4.0-10.0)
== END ==
LOC: SKLAB6 07:09
PROVIDERS: ATTEND Internal Medicine
DX: D64.9 Anemia, unspecified (principal)

== ENCOUNTER → 2023-11-15 | Outpatient (REF) | payer BC, MEDICAID ==
[2023-11-15 09:41] LABS: HEMOGLOBIN 11.1 g/dl (12.0-15.5); MEAN CORPUSCULAR HEMOGLOBIN 28.7 pg (27.0-33.0); MEAN CORPUSCULAR HGB CONC 30.8 g/dl (32.0-36.5); PLATELET COUNT, AUTOMATED 248 10^3/uL (150-450); RED BLOOD COUNT 3.87 10^6/uL (4.00-5.40); WHITE BLOOD COUNT 9.3 10^3/uL (4.0-10.0)
== END ==
LOC: SKLAB6 07:00
PROVIDERS: ATTEND Family Medicine
DX: D64.9 Anemia, unspecified (principal)

== ENCOUNTER → 2023-11-28 | Outpatient (REF) | payer BC, MEDICAID | LOC: SKLAB6 07:00 | PROVIDERS: ATTEND Internal Medicine | DX: E83.42 Hypomagnesemia (principal) ==

== ENCOUNTER → 2024-01-10 | Outpatient (REF) | payer MEDICARE, BC, MEDICAID ==
[~2024-01-10] MED LIST changes: +RAMI10CA64 PO; -RAMI1CAP26 PO
[2024-01-10 12:47] LABS: HEMOGLOBIN 11.1 g/dl (12.0-15.5); MEAN CORPUSCULAR HEMOGLOBIN 31.1 pg (27.0-33.0); MEAN CORPUSCULAR HGB CONC 31.7 g/dl (32.0-36.5); PLATELET COUNT, AUTOMATED 253 10^3/uL (150-450); RED BLOOD COUNT 3.57 10^6/uL (4.00-5.40); WHITE BLOOD COUNT 9.6 10^3/uL (4.0-10.0)
[2024-01-10 13:17] LABS: BLOOD UREA NITROGEN 20 MG/DL (9-23); CALCIUM LEVEL 8.5 MG/DL (8.3-10.6); CARBON DIOXIDE LEVEL 31 MMOL/L (20-31); CHLORIDE LEVEL 106 MMOL/L (98-107); CREATININE FOR GFR 0.91 MG/DL (0.55-1.30); GLOMERULAR FILTRATION RATE > 60.0 (>32); GLUCOSE, FASTING 95 MG/DL (74-106); POTASSIUM SERUM 4.3 MMOL/L (3.5-5.1); SODIUM LEVEL 141 MMOL/L (136-145)
== END ==
LOC: SKLAB6 06:52
PROVIDERS: ATTEND Family Medicine
DX: N18.9 Chronic kidney disease, unspecified (principal); D63.1 Anemia in chronic kidney disease

== ENCOUNTER → 2024-02-14 | Outpatient (REF) | payer MEDICARE, BC, MEDICAID ==
[2024-02-14 13:54] LABS: HEMOGLOBIN 11.4 g/dl (12.0-15.5); MEAN CORPUSCULAR HEMOGLOBIN 32.1 pg (27.0-33.0); MEAN CORPUSCULAR HGB CONC 31.7 g/dl (32.0-36.5); MEAN CORPUSCULAR VOLUME 101.4 fl (80.0-96.0); PLATELET COUNT, AUTOMATED 247 10^3/uL (150-450); RED BLOOD COUNT 3.55 10^6/uL (4.00-5.40); WHITE BLOOD COUNT 9.8 10^3/uL (4.0-10.0)
== END ==
LOC: SKLAB6 07:00
PROVIDERS: ATTEND Internal Medicine
DX: D64.9 Anemia, unspecified (principal)

== ENCOUNTER → 2024-03-13 | Outpatient (REF) | payer MEDICARE, BC, MEDICAID ==
[2024-03-13 09:48] LABS: HEMATOCRIT 38.3 % (36.0-47.0); HEMOGLOBIN 11.8 g/dl (12.0-15.5); MEAN CORPUSCULAR HEMOGLOBIN 32.2 pg (27.0-33.0); MEAN CORPUSCULAR HGB CONC 30.8 g/dl (32.0-36.5); MEAN CORPUSCULAR VOLUME 104.6 fl (80.0-96.0); PLATELET COUNT, AUTOMATED 224 10^3/uL (150-450); RED BLOOD COUNT 3.66 10^6/uL (4.00-5.40); WHITE BLOOD COUNT 9.1 10^3/uL (4.0-10.0)
== END ==
LOC: SKLAB6 07:45
PROVIDERS: ATTEND Family Medicine
DX: D64.9 Anemia, unspecified (principal)

== ENCOUNTER → 2024-03-15 | Outpatient (REF) | payer MEDICARE, BC, MEDICAID | LOC: M RAD 14:09 | PROVIDERS: ATTEND Internal Medicine | DX: R07.9 Chest pain, unspecified (principal) ==

== ENCOUNTER → 2024-03-17 | Outpatient (REF) | payer MEDICARE, BC, MEDICAID ==
[2024-03-17 16:37] LABS: HEMATOCRIT 36.1 % (36.0-47.0); HEMOGLOBIN 11.7 g/dl (12.0-15.5); MEAN CORPUSCULAR HEMOGLOBIN 32.2 pg (27.0-33.0); MEAN CORPUSCULAR HGB CONC 32.4 g/dl (32.0-36.5); MEAN CORPUSCULAR VOLUME 99.4 fl (80.0-96.0); PLATELET COUNT, AUTOMATED 275 10^3/uL (150-450); RED BLOOD COUNT 3.63 10^6/uL (4.00-5.40); WHITE BLOOD COUNT 10.8 10^3/uL (4.0-10.0)
[2024-03-17 17:07] LABS: BLOOD UREA NITROGEN 25 MG/DL (9-23); CALCIUM LEVEL 9.1 MG/DL (8.3-10.6); CARBON DIOXIDE LEVEL 29 MMOL/L (20-31); CHLORIDE LEVEL 104 MMOL/L (98-107); CREATININE FOR GFR 0.95 MG/DL (0.55-1.30); GLOMERULAR FILTRATION RATE > 60.0 (>32); GLUCOSE, FASTING 127 MG/DL (74-106); POTASSIUM SERUM 4.1 MMOL/L (3.5-5.1); SODIUM LEVEL 139 MMOL/L (136-145)
== END ==
LOC: SKLAB6 13:53
PROVIDERS: ATTEND Internal Medicine
DX: R07.9 Chest pain, unspecified (principal)

== ENCOUNTER → 2024-04-17 | Outpatient (REF) | payer MEDICARE, BC, MEDICAID ==
[2024-04-17 11:20] LABS: HEMATOCRIT 34.1 % (36.0-47.0); MEAN CORPUSCULAR HEMOGLOBIN 32.4 pg (27.0-33.0); MEAN CORPUSCULAR HGB CONC 32.3 g/dl (32.0-36.5); MEAN CORPUSCULAR VOLUME 100.3 fl (80.0-96.0); PLATELET COUNT, AUTOMATED 227 10^3/uL (150-450); WHITE BLOOD COUNT 10.4 10^3/uL (4.0-10.0)
== END ==
LOC: SKLAB6 07:00
PROVIDERS: ATTEND Family Medicine
DX: D64.9 Anemia, unspecified (principal)

== ENCOUNTER → 2024-05-15 | Outpatient (REF) | payer MEDICARE, BC, MEDICAID ==
[2024-05-15 11:01] LABS: HEMATOCRIT 34.7 % (36.0-47.0); MEAN CORPUSCULAR HEMOGLOBIN 31.7 pg (27.0-33.0); MEAN CORPUSCULAR HGB CONC 31.7 g/dl (32.0-36.5); PLATELET COUNT, AUTOMATED 227 10^3/uL (150-450); RED BLOOD COUNT 3.47 10^6/uL (4.00-5.40); WHITE BLOOD COUNT 8.6 10^3/uL (4.0-10.0)
== END ==
LOC: SKLAB6 07:20
PROVIDERS: ATTEND Family Medicine
DX: D64.9 Anemia, unspecified (principal)

== ENCOUNTER → 2024-06-12 | Outpatient (REF) | payer MEDICARE, BC, MEDICAID ==
[2024-06-12 09:01] LABS: HEMATOCRIT 37.5 % (36.0-47.0); HEMOGLOBIN 11.8 g/dl (12.0-15.5); MEAN CORPUSCULAR HEMOGLOBIN 31.9 pg (27.0-33.0); MEAN CORPUSCULAR HGB CONC 31.5 g/dl (32.0-36.5); MEAN CORPUSCULAR VOLUME 101.4 fl (80.0-96.0); PLATELET COUNT, AUTOMATED 259 10^3/uL (150-450); WHITE BLOOD COUNT 8.8 10^3/uL (4.0-10.0)
[2024-06-12 09:36] LABS: BLOOD UREA NITROGEN 20 MG/DL (9-23); CALCIUM LEVEL 9.5 MG/DL (8.3-10.6); CARBON DIOXIDE LEVEL 29 MMOL/L (20-31); CHLORIDE LEVEL 104 MMOL/L (98-107); CREATININE FOR GFR 0.92 MG/DL (0.55-1.30); GLOMERULAR FILTRATION RATE > 60.0 (>32); GLUCOSE, FASTING 107 MG/DL (74-106); MAGNESIUM LEVEL 2.4 MG/DL (1.8-2.4); POTASSIUM SERUM 4.8 MMOL/L (3.5-5.1); SODIUM LEVEL 139 MMOL/L (136-145)
[2024-06-12 09:37] LABS: VITAMIN B12 LEVEL 624 PG/ML (211-911)
== END ==
LOC: SKLAB6 07:00
PROVIDERS: ATTEND Internal Medicine
DX: D64.9 Anemia, unspecified (principal); N18.9 Chronic kidney disease, unspecified

== ENCOUNTER → 2024-07-10 | Outpatient (REF) | payer MEDICARE, BC, MEDICAID ==
[2024-07-10 07:14] LABS: HEMATOCRIT 34.9 % (36.0-47.0); HEMOGLOBIN 11.3 g/dl (12.0-15.5); MEAN CORPUSCULAR HEMOGLOBIN 31.8 pg (27.0-33.0); MEAN CORPUSCULAR HGB CONC 32.4 g/dl (32.0-36.5); MEAN CORPUSCULAR VOLUME 98.3 fl (80.0-96.0); PLATELET COUNT, AUTOMATED 235 10^3/uL (150-450); RED BLOOD COUNT 3.55 10^6/uL (4.00-5.40)
== END ==
LOC: SKLAB6 07:00
PROVIDERS: ATTEND Family Medicine
DX: D64.9 Anemia, unspecified (principal)

== ENCOUNTER → 2024-08-14 | Outpatient (REF) | payer MEDICARE, BC, MEDICAID ==
[2024-08-14 09:37] LABS: HEMATOCRIT 35.1 % (36.0-47.0); HEMOGLOBIN 11.2 g/dl (12.0-15.5); MEAN CORPUSCULAR HEMOGLOBIN 31.5 pg (27.0-33.0); MEAN CORPUSCULAR HGB CONC 31.9 g/dl (32.0-36.5); MEAN CORPUSCULAR VOLUME 98.9 fl (80.0-96.0); PLATELET COUNT, AUTOMATED 236 10^3/uL (150-450); RED BLOOD COUNT 3.55 10^6/uL (4.00-5.40); WHITE BLOOD COUNT 10.4 10^3/uL (4.0-10.0)
== END ==
LOC: SKLAB6 07:00
PROVIDERS: ATTEND Family Medicine
DX: D64.9 Anemia, unspecified (principal)

== ENCOUNTER → 2024-12-11 | Outpatient (REF) | payer MEDICARE, BC, MEDICAID ==
[~2024-12-11] MED LIST changes: -BAYE325T12 PO; +BAYE325T2 PO
[2024-12-11 07:14] LABS: HEMATOCRIT 35.8 % (36.0-47.0); HEMOGLOBIN 11.4 g/dl (12.0-15.5); MEAN CORPUSCULAR HEMOGLOBIN 31.2 pg (27.0-33.0); MEAN CORPUSCULAR HGB CONC 31.8 g/dl (32.0-36.5); MEAN CORPUSCULAR VOLUME 98.1 fl (80.0-96.0); PLATELET COUNT, AUTOMATED 270 10^3/uL (150-450); RED BLOOD COUNT 3.65 10^6/uL (4.00-5.40); WHITE BLOOD COUNT 9.6 10^3/uL (4.0-10.0)
== END ==
LOC: SKLAB6 07:00
PROVIDERS: ATTEND Internal Medicine
DX: D64.9 Anemia, unspecified (principal)

== ENCOUNTER → 2025-04-16 | Outpatient (REF) | payer MEDICARE, BC, MEDICAID ==
[2025-04-16 08:36] LABS: PLATELET COUNT, AUTOMATED 269 10^3/uL (150-450)
== END ==
LOC: SKLAB6 07:00
PROVIDERS: ATTEND Internal Medicine
DX: D64.9 Anemia, unspecified (principal)

== ENCOUNTER → 2025-06-18 | Outpatient (REF) | payer MEDICARE, BC, MEDICAID ==
[~2025-06-18] MED LIST changes: -VITA500T17 PO; +VITA500T8 PO; -ZOLP5TAB PO; +ZOLP5TAB9 PO
[2025-06-18 08:45] LABS: MAGNESIUM LEVEL 2.1 MG/DL (1.8-2.4)
[2025-06-18 08:48] LABS: VITAMIN B12 LEVEL 615.0 PG/ML (211-911)
== END ==
LOC: SKLAB6 07:00
PROVIDERS: ATTEND Family Medicine
DX: E53.8 Deficiency of other specified B group vitamins (principal)

== ENCOUNTER → 2025-08-12 | Outpatient (REF) | payer MEDICARE, BC, MEDICAID | LOC: SKLAB6 07:00 | PROVIDERS: ATTEND Family Medicine | DX: Z11.2 Encounter for screening for other bacterial diseases (principal); Z20.818 Contact with and (suspected) exposure to other bacterial communicable diseases ==